=== PATIENT | male | born 1955 | race Caucasian/White ===

== ENCOUNTER 2017-08-08 17:38 | Day surgery (SDC) | payer OTHER ==
--- NOTE | 2017-08-08 18:28 | EDM.PDOC ---
ED HPI GENERAL MEDICAL PROBLEM - General Chief Complaint: Upper Extremity Injury/Pain Stated Complaint: RIGHT SHOULD HURT FEEL DOWN Time Seen by Provider: 08/08/17 18:15 Source of Information: Reports: Patient History Limitations: Reports: No Limitations - History of Present Illness INITIAL COMMENTS - FREE TEXT/NARRATIVE: HISTORY AND PHYSICAL: History of present illness: [Patient comes to the emergency room complaining of right shoulder pain. He was walking on uneven ground when he began to lose his balance. He fell against the house with his right hand and arm outstretched, bracing him against the house. He complains of deformity and discomfort to his right arm. Denies significant pain. Is unable to use his arm. NPO since 1629. Drank 6 beers this afternoon with some family that were in town for a . Denies any pain at the time that he is seen in the emergency room. Review of systems: As per history of present illness and below otherwise all systems reviewed and negative. Past medical history: As per history of present illness and as reviewed below otherwise noncontributory. Surgical history: As per history of present illness and as reviewed below otherwise noncontributory. Social history: No reported history of drug or alcohol abuse. Family history: As per history of present illness and as reviewed below otherwise noncontributory. Physical exam: HEENT: Atraumatic, normocephalic. Extremities: Ecchymosis is developing at the AC joint. Right shoulder appears lower than left. Patient is cradling his right arm with his left. Capillary refill less than 2 seconds. Radial pulse 2+ and strong. Neurovascular unremarkable. Neuro: Awake, alert, oriented. Exam nonfocal. Diagnostics: [Right shoulder x-ray, R humerus x-ray] Impression: [R anterior shoulder dislocation, R proximal humerus fracture] Plan: [Patient's x-ray findings and presentation are discussed w/ Dr. Ameena Meza at 1920 who agrees to evaluate patient in the ER. See Dr. Meza's note. Patient is taken to surgery to have right shoulder dislocation repaired nonsurgically. ] Definitive disposition and diagnosis as appropriate pending reevaluation and review of above. - Related Data Allergies Allergy/AdvReac Type Severity Reaction Status Date / Time No Known Allergies Allergy Verified 08/08/17 18:14 Home Meds: Home Meds Acetaminophen/HYDROcodone [[place] 325-10 MG] 1 tab PO Q4H PRN #80 tablet [Rx] Past Medical History - Past Health History Medical/Surgical History: Denies Medical/Surgical History Social & Family History - Tobacco Use Smoking Status *Q: Never Smoker Second Hand Smoke Exposure: No - Caffeine Use Caffeine Use: Reports: None - Alcohol Use Days Per Week of Alcohol Use: 5 Number of Drinks Per Day: 6 Total Drinks Per Week: 30 - Recreational Drug Use Recreational Drug Use: No Review of Systems - Review of Systems Review Of Systems: ROS reveals no pertinent complaints other than HPI. ED EXAM, GENERAL - Physical Exam Exam: See Below Course - Vital Signs Last Recorded V/S: Last Vital Signs Temp 97.5 F 08/08/17 18:13 Pulse 88 08/08/17 18:13 Resp 20 08/08/17 20:45 BP 168/89 H 08/08/17 18:13 Pulse Ox 96 08/08/17 20:45 - Orders/Labs/Meds Orders: Active Orders 24 hr Category Date Time Status EKG Documentation Completion [RC] STAT Care 08/08/17 19:22 Active NPO [Nothing Per Oral Diet] [DIET] Diet 08/09/17 Breakfast Active Humerus Rt [CR] Stat Exams 08/08/17 18:38 Taken Shoulder Comp Rt [CR] Stat Exams 08/08/17 18:19 Taken Shoulder Comp Rt [CR] Stat Exams 08/08/17 19:46 Taken UA W/MICROSCOPIC [URIN] Stat Lab 08/08/17 19:22 Uncollected Labs: Laboratory Tests 08/08/17 08/08/17 08/08/17 Range/Units 19:35 19:35 19:35 WBC 3.95 L (4.0-11.0) K/uL RBC 4.03 L (4.50-5.90) M/uL Hgb 13.0 (13.0-17.0) g/dL Hct 38.0 (38.0-50.0) % MCV 94.3 (80.0-98.0) fL MCH 32.3 H (27.0-32.0) pg MCHC 34.2 (31.0-37.0) g/dL RDW Std Deviation 50.6 (28.0-62.0) fl RDW Coeff of Toni 15 (11.0-15.0) % Plt Count 146 L (150-400) K/uL MPV 9.30 (7.40-12.00) fL Add Manual Diff YES Neutrophils % (Manual) 60 (48.0-80.0) % Band Neutrophils % 6 % Lymphocytes % (Manual) 25 (16.0-40.0) % Monocytes % (Manual) 8 (0.0-15.0) % Basophils % (Manual) 1 (0.0-1.5) % Nucleated RBC % 0.0 /100WBC Absolute Seg Neuts 2.4 Band Neutrophils # 0.2 Lymphocytes # (Manual) 1.0 Monocytes # (Manual) 0.3 Basophils # (Manual) 0 Nucleated RBCs # 0 K/uL INR 1.03 (0.86-1.11) Sodium 137 (136-146) mmol/L Potassium 3.6 (3.5-5.1) mmol/L Chloride 101 (98-110) mmol/L Carbon Dioxide 21 (21-31) mmol/L BUN 9 (6.0-23.0) mg/dL Creatinine 0.8 (0.6-1.5) mg/dL Est Cr Clr Drug Dosing 157.50 mL/min Estimated GFR (MDRD) > 60.0 ml/min Glucose 107 (60-110) mg/dL Calcium 8.6 L (8.8-10.8) mg/dL Meds: Medications Discontinued Medications Generic Name Dose Route Start Last Admin Trade Name Freq PRN Reason Stop Dose Admin Fentanyl Confirm 08/08/17 19:39 Sublimaze Administered 08/08/17 19:40 Dose 100 mcg .ROUTE .STK-MED ONE Fentanyl Confirm 08/08/17 20:14 Sublimaze Administered 08/08/17 20:15 Dose 100 mcg .ROUTE .STK-MED ONE Sodium Chloride 1,000 mls @ 999 mls/hr 08/08/17 19:30 08/08/17 19:44 Normal Saline IV 08/08/17 20:30 999 mls/hr STAT ONE Administration Ketorolac Tromethamine Confirm 08/08/17 20:24 Toradol Administered 08/08/17 20:25 Dose 30 mg .ROUTE .STK-MED ONE Labetalol HCl Confirm 08/08/17 20:34 Normodyne Administered 08/08/17 20:35 Dose 100 mg .ROUTE .STK-MED ONE Midazolam HCl Confirm 08/08/17 19:39 Versed 1 Mg/Ml Administered 08/08/17 19:40 Dose 2 mg .ROUTE .STK-MED ONE Ondansetron HCl Confirm 08/08/17 19:39 Zofran Administered 08/08/17 19:40 Dose 4 mg .ROUTE .STK-MED ONE Propofol Confirm 08/08/17 19:39 Diprivan 20 Ml Administered 08/08/17 19:40 Dose 200 mg .ROUTE .STK-MED ONE Rocuronium [place] Confirm 08/08/17 19:39 Zemuron Administered 08/08/17 19:40 Dose 100 mg .ROUTE .STK-MED ONE Succinylcholine Chloride Confirm 08/08/17 19:39 Succinylcholine In Ns Pf Administered 08/08/17 19:40 Dose 200 mg .ROUTE .STK-MED ONE Departure - Departure Time of Disposition: 20:05 Disposition: Still A Patient 30 Condition: Good Clinical Impression: Anterior shoulder dislocation, Humerus fracture - Discharge Information - My Orders Last 24 Hours: My Active Orders 08/08/17 18:19 Shoulder Comp Rt [CR] Stat 08/08/17 18:38 Humerus Rt [CR] Stat 08/08/17 19:22 EKG Documentation Completion [RC] STAT UA W/MICROSCOPIC [URIN] Stat 08/09/17 Breakfast NPO [Nothing Per Oral Diet] [DIET] - Assessment/Plan Last 24 Hours: My Active Orders 08/08/17 18:19 Shoulder Comp Rt [CR] Stat 08/08/17 18:38 Humerus Rt [CR] Stat 08/08/17 19:22 EKG Documentation Completion [RC] STAT UA W/MICROSCOPIC [URIN] Stat 08/09/17 Breakfast NPO [Nothing Per Oral Diet] [DIET]
[2017-08-08] MEDS ORDERED: Sodium Chloride 0.9% 1,000 ML IV ONE (19:30)
[2017-08-08] MEDS ORDERED: Ondansetron 4 MG/2 ML SDV ONE (19:39)
[2017-08-08] MEDS ORDERED: fentaNYL 100 MCG/2 ML SDV ONE ×2 (19:39→20:14)
[2017-08-08] MEDS ORDERED: Propofol 200 MG/20 ML SDV ONE (19:39)
[2017-08-08] MEDS ORDERED: Rocuronium 10 MG/ML 10 ML Syringe ONE (19:39)
[2017-08-08] MEDS ORDERED: Succinylcholine/Normal Saline 200 MG/10 ML Syringe ONE (19:39)
[2017-08-08] MEDS ORDERED: Midazolam 1 MG/ML 2 ML SDV ONE (19:39)
[2017-08-08 19:56] LABS: CHLORIDE,CL 101 mmol/L (98-110); SODIUM,NA 137 mmol/L (136-146)
--- NOTE | 2017-08-08 20:04 | PCM.HP ---
H&P History of Present Illness - General Date of Service: 08/08/17 Source of Information: Patient, Family History Limitations: Reports: No Limitations - History of Present Illness Initial Comments - Free Text/Narative: 62 y/o RHD male who fell earlier today, landing on RUE. C/o pain and inability to move shoulder. Presented to ER. XR show fracture/dislocation of the R humerus /shoulder. Patient states pain is fairly well controlled. No h/o previous injury or pain. Denies distal paralysis/paresthesias. Onset of Symptoms: Reports: Today - Related Data Allergies/Adverse Reactions: Allergies Allergy/AdvReac Type Severity Reaction Status Date / Time No Known Allergies Allergy Verified 08/08/17 18:14 Home Medications: Home Meds . [No Known Home Meds] 08/08/17 [History] Past Medical History - Past Surgical History HEENT Surgical History: Reports: Cataract Surgery GI Surgical History: Reports: Other (See Below) (perirectal abscess) Social & Family History - Tobacco Use Smoking Status *Q: Never Smoker Second Hand Smoke Exposure: No - Caffeine Use Caffeine Use: Reports: None - Alcohol Use Alcohol Use History: Yes Days Per Week of Alcohol Use: 5 Number of Drinks Per Day: 6 Total Drinks Per Week: 30 - Recreational Drug Use Recreational Drug Use: No H&P Review of Systems - Review of Systems: Review Of Systems: See Below General: Reports: No Symptoms HEENT: Reports: No Symptoms Pulmonary: Reports: No Symptoms Cardiovascular: Reports: No Symptoms Gastrointestinal: Reports: No Symptoms Genitourinary: Reports: No Symptoms Musculoskeletal: Reports: Joint Pain Skin: Reports: No Symptoms Psychiatric: Reports: No Symptoms Neurological: Reports: No Symptoms Hematologic/Lymphatic: Reports: No Symptoms Immunologic: Reports: No Symptoms Exam - Exam Exam: See Below - Vital Signs Vital Signs: Last Vital Signs Temp 97.5 F 08/08/17 18:13 Pulse 88 08/08/17 18:13 Resp 20 08/08/17 18:13 BP 168/89 H 08/08/17 18:13 Pulse Ox 96 08/08/17 18:13 Weight: 113.398 kg - Exam General: Alert, Oriented, 4 HEENT: Conjunctiva Clear, Hearing Intact, Nares Patent, Pupils Equal Neck: Supple, Trachea Midline, 2 Lungs: Normal Respiratory Effort Cardiovascular: Regular Rate GI/Abdominal Exam: Soft Psychiatric: Alert, Normal Affect, Normal Mood Physical Exam Comments:: Exam of RUE shows loss of deltoid contour. Skin intact. TTP over midshaft of humerus. No skin tenting noted. No TTP about elbow or wrist. ROM of shoulder deferred due to XR findings. Axillary/AIN/PIN/uln motor intact. Axillary/rad/uln /med sensation intact. Rad pulse 2+. - Patient Data Result Diagrams: 08/08/17 19:35 Imaging Impressions Last 24 hrs: XR of R shoulder and upper arms shows anterior dislocation of the R glenohumeral joint and spiral fracture of the humerus. *Q Meaningful Use (ADM) - VTE *Q VTE Criteria *Q: - Stroke *Q Stroke Criteria *Q: - AMI *Q AMI Criteria *Q: - Problem List (1) Humerus shaft fracture SNOMED Code(s): 38611231 ICD Code: S42.309A - UNSP FRACTURE OF SHAFT OF HUMERUS, UNSP ARM, INIT Status: Acute Current Visit: Yes Qualifiers: Encounter type: initial encounter Fracture type: closed Fracture morphology: spiral Fracture alignment: displaced Laterality: right Qualified Code(s): S42.341A - Displaced spiral fracture of shaft of humerus, right arm, initial encounter for closed fracture (2) Dislocation, shoulder closed SNOMED Code(s): 148740355 ICD Code: S43.006A - UNSP DISLOCATION OF UNSPECIFIED SHOULDER JOINT, INIT ENCNTR Status: Acute Current Visit: Yes Qualifiers: Encounter type: initial encounter Laterality: right Qualified Code(s): S43.004A - Unspecified dislocation of right shoulder joint, initial encounter Problem List Initiated/Reviewed/Updated: Yes Orders Last 24hrs: Medication Orders Sodium Chloride (Normal Saline) 1,000 mls @ 999 mls/hr IV STAT ONE Stop: 08/08/17 20:30 Last Admin: 08/08/17 19:44 Dose: 999 mls/hr Assessment/Plan Comment:: I recommended that we proceed with Closed Reduction of the right shoulder. I discussed that he may need further surgical treatment of the fracture in the future, however we would not do that tonight. Risks of procedure include, but are not limited to, n/v injury, stiffness, recurrent dislocation, need for future surgery, and anesthetic complications. Patient agrees to proceed.
[2017-08-08] MEDS ORDERED: Ketorolac 30 MG/ML SDV ONE (20:24)
--- NOTE | 2017-08-08 20:31 | PCM.OPNOTE ---
- General Post-Op/Procedure Note Date of Surgery/Procedure: 08/08/17 Operative Procedure(s): CR R shoulder Post-Op Diagnosis: R shoulder dislocation. R humerus fracture Anesthesia Technique: General ET Tube Primary Surgeon: Ameena Meza Manager Advertising: Rosie Johnson in mLs: 0 Condition: Good Free Text/Narrative:: #[id number]
[2017-08-08] MEDS ORDERED: Labetalol 100 MG/20 ML MDV ONE (20:34)
--- NOTE | 2017-08-08 20:46 | PCM.PREANE ---
Preanesthetic Assessment - Anesthesia/Transfusion/Family Hx Anesthesia History: Prior Anesthesia Without Reaction Family History of Anesthesia Reaction: No - Review of Systems Other: Reports: None - Physical Assessment O2 Sat by Pulse Oximetry: 96 Respiratory Rate: 20 Vital Signs: Last Vital Signs Temp 36.4 C 08/08/17 18:13 Pulse 88 08/08/17 18:13 Resp 20 08/08/17 18:13 BP 168/89 H 08/08/17 18:13 Pulse Ox 96 08/08/17 18:13 Height: 511 ft Weight: 113.398 kg ASA Class: 2E Mental Status: Alert & Oriented x3 Airway Class: Mallampati = 2 Dentition: Reports: Normal Dentition, Broken Tooth/Teeth (front tooth missing) Thyro-Mental Finger Breadths: 3 Mouth Opening Finger Breadths: 3 ROM/Head Extension: Full - Lab Values: Laboratory Last Values WBC 3.95 K/uL (4.0-11.0) L 08/08/17 19:35 RBC 4.03 M/uL (4.50-5.90) L 08/08/17 19:35 Hgb 13.0 g/dL (13.0-17.0) 08/08/17 19:35 Hct 38.0 % (38.0-50.0) 08/08/17 19:35 MCV 94.3 fL (80.0-98.0) 08/08/17 19:35 MCH 32.3 pg (27.0-32.0) H 08/08/17 19:35 MCHC 34.2 g/dL (31.0-37.0) 08/08/17 19:35 RDW Std Deviation 50.6 fl (28.0-62.0) 08/08/17 19:35 RDW Coeff of Toni 15 % (11.0-15.0) 08/08/17 19:35 Plt Count 146 K/uL (150-400) L 08/08/17 19:35 MPV 9.30 fL (7.40-12.00) 08/08/17 19:35 Add Manual Diff YES 08/08/17 19:35 Neutrophils % (Manual) 60 % (48.0-80.0) 08/08/17 19:35 Band Neutrophils % 6 % 08/08/17 19:35 Lymphocytes % (Manual) 25 % (16.0-40.0) 08/08/17 19:35 Monocytes % (Manual) 8 % (0.0-15.0) 08/08/17 19:35 Basophils % (Manual) 1 % (0.0-1.5) 08/08/17 19:35 Nucleated RBC % 0.0 /100WBC 08/08/17 19:35 Absolute Seg Neuts 2.4 08/08/17 19:35 Band Neutrophils # 0.2 08/08/17 19:35 Lymphocytes # (Manual) 1.0 08/08/17 19:35 Monocytes # (Manual) 0.3 08/08/17 19:35 Basophils # (Manual) 0 08/08/17 19:35 Nucleated RBCs # 0 K/uL 08/08/17 19:35 INR 1.03 (0.86-1.11) 08/08/17 19:35 Sodium 137 mmol/L (136-146) 08/08/17 19:35 Potassium 3.6 mmol/L (3.5-5.1) 08/08/17 19:35 Chloride 101 mmol/L (98-110) 08/08/17 19:35 Carbon Dioxide 21 mmol/L (21-31) 08/08/17 19:35 BUN 9 mg/dL (6.0-23.0) 08/08/17 19:35 Creatinine 0.8 mg/dL (0.6-1.5) 08/08/17 19:35 Est Cr Clr Drug Dosing 157.50 mL/min 08/08/17 19:35 Estimated GFR (MDRD) > 60.0 ml/min 08/08/17 19:35 Glucose 107 mg/dL (60-110) 08/08/17 19:35 Calcium 8.6 mg/dL (8.8-10.8) L 08/08/17 19:35 - Allergies Allergies/Adverse Reactions: Allergies Allergy/AdvReac Type Severity Reaction Status Date / Time No Known Allergies Allergy Verified 08/08/17 18:14 - Blood Blood Available: No - Anesthesia Plan Pre-Op Medication Ordered: None - Acknowledgements Anesthesia Type Planned: General Anesthesia Pt an Appropriate Candidate for the Planned Anesthesia: Yes Alternatives and Risks of Anesthesia Discussed w Pt/Guardian: Yes Pt/Guardian Understands and Agrees with Anesthesia Plan: Yes PreAnesthesia Questionnaire - Past Health History Medical/Surgical History: Denies Medical/Surgical History Gastrointestinal History: Reports: GERD - Past Surgical History HEENT Surgical History: Reports: Cataract Surgery GI Surgical History: Reports: Other (See Below) (perirectal abscess) - SUBSTANCE USE Smoking Status *Q: Never Smoker Second Hand Smoke Exposure: No Days Per Week of Alcohol Use: 5 Number of Drinks Per Day: 6 Total Drinks Per Week: 30 Recreational Drug Use History: No - HOME MEDS Home Medications: Home Meds Acetaminophen/HYDROcodone [[place] 325-10 MG] 1 tab PO Q4H PRN #80 tablet [Rx] - CURRENT (IN HOUSE) MEDS Current Meds: Current Medications Discontinued Medications Fentanyl (Sublimaze) Confirm Administered Dose 100 mcg .ROUTE .STK-MED ONE Stop: 08/08/17 19:40 Fentanyl (Sublimaze) Confirm Administered Dose 100 mcg .ROUTE .STK-MED ONE Stop: 08/08/17 20:15 Sodium Chloride (Normal Saline) 1,000 mls @ 999 mls/hr IV STAT ONE Stop: 08/08/17 20:30 Last Admin: 08/08/17 19:44 Dose: 999 mls/hr Ketorolac Tromethamine (Toradol) Confirm Administered Dose 30 mg .ROUTE .STK- MED ONE Stop: 08/08/17 20:25 Labetalol HCl (Normodyne) Confirm Administered Dose 100 mg .ROUTE .STK-MED ONE Stop: 08/08/17 20:35 Midazolam HCl (Versed 1 Mg/Ml) Confirm Administered Dose 2 mg .ROUTE .STK-MED ONE Stop: 08/08/17 19:40 Ondansetron HCl (Zofran) Confirm Administered Dose 4 mg .ROUTE .STK-MED ONE Stop: 08/08/17 19:40 Propofol (Diprivan 20 Ml) Confirm Administered Dose 200 mg .ROUTE .STK-MED ONE Stop: 08/08/17 19:40 Rocuronium [place] (Zemuron) Confirm Administered Dose 100 mg .ROUTE .STK-MED ONE Stop: 08/08/17 19:40 Succinylcholine Chloride (Succinylcholine In Ns Pf) Confirm Administered Dose 200 mg .ROUTE .STK-MED ONE Stop: 08/08/17 19:40
--- NOTE | 2017-08-08 20:46 | PCM.POSTAN ---
POST ANESTHESIA ASSESSMENT - MENTAL STATUS Mental Status: Alert, Oriented - RESPIRATORY Respiratory Status: Respiratory Rate WNL, Airway Patent, O2 Saturation Stable - CARDIOVASCULAR CV Status: Pulse Rate WNL, Blood Pressure Stable - GASTROINTESTINAL GI Status: No Symptoms - PAIN Pain Score: 0 - POST OP HYDRATION Hydration Status: Adequate & Stable
--- NOTE | 2017-08-08 21:44 | PCM48HPAN ---
Post Anesthesia Note - EVALUATION WITHIN 48HRS OF ANESTHETIC Vital Signs in Normal Range: Yes Patient Participated in Evaluation: Yes Respiratory Function Stable: Yes Airway Patent: Yes Cardiovascular Function Stable: Yes Hydration Status Stable: Yes Pain Control Satisfactory: Yes Nausea and Vomiting Control Satisfactory: Yes Mental Status Recovered: Yes
[2017-08-08] MEDS ORDERED: Acetaminophen/HYDROcodone 325-10 MG Tab PO PRN ×2 (23:01→23:31)
[2017-08-08] MEDS ORDERED: Morphine 2 MG/ML Syringe IVPUSH PRN (23:01)
[2017-08-09] MEDS ORDERED: Lisinopril 10 MG Tab PO ONE (00:43)
--- NOTE | 2017-08-09 01:19 | OR ---
SURGEON: Ameena Meza MD DATE OF PROCEDURE: 08/08/2017 PREOPERATIVE DIAGNOSES: 1. Right anterior shoulder dislocation. 2. Right proximal humerus fracture. POSTOPERATIVE DIAGNOSES: 1. Right anterior shoulder dislocation. 2. Right proximal humerus fracture. PROCEDURE: Closed reduction, right shoulder. CIVIL ENGINEERING DRAFTSPERSON: Rosie Johnson PA-C. ANESTHESIA: General. ESTIMATED BLOOD LOSS: 0 mL. TOURNIQUET TIME: 0 minutes. COMPLICATIONS: None. DVT PROPHYLAXIS: Not indicated. IMPLANTS USED: None. BRIEF HISTORY: Сергей is a 62-year-old male, who sustained a fall earlier today. He states that he landed on an outstretched right arm. He complained of immediate pain. He was seen in the emergency room. X-rays were obtained, which showed a fracture of the right proximal humerus as well as an anterior shoulder dislocation. At that time, I recommended surgical treatment. Risks and goals of procedure were discussed with the patient and were documented preoperatively. He agreed to proceed. DESCRIPTION OF PROCEDURE: The patient was properly identified and brought to the operating room. General anesthesia was administered. After adequate anesthesia was obtained, a time-out was performed to ensure correct site and procedure. Preoperative antibiotics were not given. The surgical site had been marked preoperatively. The torso was stabilized. Gentle traction was applied to the upper arm and it was slightly flexed. This provided a visible reduction of the glenohumeral joint. X-ray images had confirmed reduction of the glenohumeral joint. The proximal humerus fracture remained mildly displaced. He was placed into a shoulder immobilizer. He was awakened from his anesthetic and transferred to the recovery room in stable condition. He will remain in a shoulder immobilizer. We will plan on seeing him back in 2 days for re-evaluation. At that time, we will discuss the option of a humeral fracture brace versus open reduction and internal fixation. He will be discharged home tonight with pain medication. ANABEL / LAURA /[id number]
--- NOTE | 2017-08-09 09:52 | PCM.PN ---
- General Info Date of Service: 08/09/17 Functional Status: Reports: Pain Controlled, Tolerating Diet, Ambulating, Urinating - Review of Systems General: Reports: No Symptoms Pulmonary: Reports: No Symptoms Cardiovascular: Reports: No Symptoms Gastrointestinal: Reports: No Symptoms Genitourinary: Reports: No Symptoms Musculoskeletal: Reports: Shoulder Pain Neurological: Reports: No Symptoms Psychiatric: Reports: No Symptoms - Patient Data Vitals - Most Recent: Last Vital Signs Temp 37.4 C 08/09/17 08:00 Pulse 97 08/09/17 08:00 Resp 16 08/09/17 08:00 BP 169/77 H 08/09/17 08:00 Pulse Ox 98 08/09/17 08:00 Weight - Most Recent: 113.398 kg I&O - Last 24 Hours: Intake & Output 08/08/17 08/09/17 08/09/17 22:59 06:59 14:59 Intake Total 900 700 Balance 900 700 Lab Results Last 24 Hours: Laboratory Results - last 24 hr 08/08/17 08/08/17 08/08/17 Range/Units 19:35 19:35 19:35 WBC 3.95 L (4.0-11.0) K/uL RBC 4.03 L (4.50-5.90) M/uL Hgb 13.0 (13.0-17.0) g/dL Hct 38.0 (38.0-50.0) % MCV 94.3 (80.0-98.0) fL MCH 32.3 H (27.0-32.0) pg MCHC 34.2 (31.0-37.0) g/dL RDW Std Deviation 50.6 (28.0-62.0) fl RDW Coeff of Toni 15 (11.0-15.0) % Plt Count 146 L (150-400) K/uL MPV 9.30 (7.40-12.00) fL Add Manual Diff YES Neutrophils % (Manual) 60 (48.0-80.0) % Band Neutrophils % 6 % Lymphocytes % (Manual) 25 (16.0-40.0) % Monocytes % (Manual) 8 (0.0-15.0) % Basophils % (Manual) 1 (0.0-1.5) % Nucleated RBC % 0.0 /100WBC Absolute Seg Neuts 2.4 Band Neutrophils # 0.2 Lymphocytes # (Manual) 1.0 Monocytes # (Manual) 0.3 Basophils # (Manual) 0 Nucleated RBCs # 0 K/uL INR 1.03 (0.86-1.11) Sodium 137 (136-146) mmol/L Potassium 3.6 (3.5-5.1) mmol/L Chloride 101 (98-110) mmol/L Carbon Dioxide 21 (21-31) mmol/L BUN 9 (6.0-23.0) mg/dL Creatinine 0.8 (0.6-1.5) mg/dL Est Cr Clr Drug Dosing 157.50 mL/min Estimated GFR (MDRD) > 60.0 ml/min Glucose 107 (60-110) mg/dL Calcium 8.6 L (8.8-10.8) mg/dL Med Orders - Current: Current Medications Hydrocodone Bitart/Acetaminophen ([place] 325-10 Mg) 1 - 2 tab PO Q4H PRN PRN Reason: Pain Last Admin: 08/09/17 07:31 Dose: 2 tab Morphine Sulfate (Morphine) 1 - 3 mg IVPUSH Q1H PRN PRN Reason: Pain Discontinued Medications Hydrocodone Bitart/Acetaminophen ([place] 325-10 Mg) 1 tab PO Q4H PRN PRN Reason: Pain Fentanyl (Sublimaze) Confirm Administered Dose 100 mcg .ROUTE .STK-MED ONE Stop: 08/08/17 19:40 Fentanyl (Sublimaze) Confirm Administered Dose 100 mcg .ROUTE .STK-MED ONE Stop: 08/08/17 20:15 Sodium Chloride (Normal Saline) 1,000 mls @ 999 mls/hr IV STAT ONE Stop: 08/08/17 20:30 Last Admin: 08/08/17 19:44 Dose: 999 mls/hr Ketorolac Tromethamine (Toradol) Confirm Administered Dose 30 mg .ROUTE .STK- MED ONE Stop: 08/08/17 20:25 Labetalol HCl (Normodyne) Confirm Administered Dose 100 mg .ROUTE .STK-MED ONE Stop: 08/08/17 20:35 Lisinopril (Prinivil) 20 mg PO ONETIME ONE Stop: 08/09/17 00:44 Last Admin: 08/09/17 01:09 Dose: 20 mg Midazolam HCl (Versed 1 Mg/Ml) Confirm Administered Dose 2 mg .ROUTE .STK-MED ONE Stop: 08/08/17 19:40 Ondansetron HCl (Zofran) Confirm Administered Dose 4 mg .ROUTE .STK-MED ONE Stop: 08/08/17 19:40 Propofol (Diprivan 20 Ml) Confirm Administered Dose 200 mg .ROUTE .STK-MED ONE Stop: 08/08/17 19:40 Rocuronium [place] (Zemuron) Confirm Administered Dose 100 mg .ROUTE .STK-MED ONE Stop: 08/08/17 19:40 Succinylcholine Chloride (Succinylcholine In Ns Pf) Confirm Administered Dose 200 mg .ROUTE .STK-MED ONE Stop: 08/08/17 19:40 - Exam General: Alert, Oriented HEENT: Pupils Equal, Pupils Reactive Neck: Trachea Midline Lungs: Normal Respiratory Effort Cardiovascular: Regular Rate Extremities: Other (R shoulder immobilizer in place. ) Skin: Warm, Dry, Intact Neurological: No New Focal Deficit Psy/Mental Status: Alert, Normal Affect, Normal Mood - Problem List Review Problem List Initiated/Reviewed/Updated: Yes - My Orders Last 24 Hours: My Active Orders 08/08/17 20:30 Ready for Discharge [RC] PER UNIT ROUTINE - Assessment Assessment:: Patient up to chair this AM. Pain well controlled. Denies other symptoms. - Plan Plan:: Continue pain management. Consulted Dr. Toribio regarding elevated BP. Will D/C home with referral to PCP. Followup in ortho clinic 08/10 at 9 AM with Rosie Johnson PA-C.
--- NOTE | 2017-08-09 10:06 | CR ---
EXAM DATE: 08/08/17 PATIENT'S AGE: 62 Patient: CHALINO REID Facility: [place], [place] Site . Site : 1955 Study: XRay Shoulder [id number]/26/2017 6:47:12 PM Ordering Physician: Doctor Patino Final Report: INDICATION: Trauma TECHNIQUE: Three views right shoulder COMPARISON: None FINDINGS: Bones: Displaced fracture proximal humeral shaft. Joint spaces: The humeral head is displaced inferior medially consistent with anterior dislocation. Soft tissues: Unremarkable. IMPRESSION: Displaced fracture proximal humeral shaft. The humeral head is displaced inferior medially consistent with anterior dislocation. Dictated by Nikita Infante MD @ 08/08/2017 7:28:51 PM Dictated by: Nikita Infante MD @ 08/08/2017 19:28:55 (Electronic Signature) Report Signed by Proxy. [facility] CENTERBharti
--- NOTE | 2017-08-09 10:07 | CR ---
EXAM DATE: 08/08/17 PATIENT'S AGE: 62 Patient: CHALINO REID Facility: [place], [place] Site . Site : 1955 Study: XRay Extremity humerus [id number]/26/2017 6:47:29 PM Ordering Physician: Doctor Patino Final Report: INDICATION: All TECHNIQUE: Two views right humerus COMPARISON: None FINDINGS: Bones: Displaced fracture proximal to mid humeral shaft. Joint spaces: The right shoulder joint is not well seen but three views of the right shoulder demonstrate an anterior dislocation. Soft tissues: Unremarkable. IMPRESSION: Displaced fracture proximal to mid humeral shaft. The right shoulder joint is not well seen but three views of right shoulder demonstrate anterior dislocation. Dictated by Nikita Infante MD @ 08/08/2017 7:32:48 PM Dictated by: Nikita Infante MD @ 08/08/2017 19:32:52 (Electronic Signature) Report Signed by Proxy. SHIREEN
--- NOTE | 2017-08-09 10:16 | CR ---
EXAM DATE: 08/08/17 PATIENT'S AGE: 62 Patient: CHALINO REID Facility: [place], [place] Site . Site : 1955 Study: XRay Shoulder [id number]/26/2017 8:25:41 PM Ordering Physician: Derrick Lindquist Final Report: INDICATION: Post reduction TECHNIQUE: Two views right shoulder, 8:14 p.m. COMPARISON: 6:26 p.m. FINDINGS: Bones: Displaced fracture proximal to mid humeral shaft. Joint spaces: Unremarkable. Soft tissues: Unremarkable. IMPRESSION: Anatomical alignment of the glenohumeral joint. Displaced fracture proximal to mid humeral shaft. Dictated by Nikita Infante MD @ 08/08/2017 9:27:01 PM Dictated by: Nikita Infante MD @ 08/08/2017 21:28:37 (Electronic Signature) Report Signed by Proxy. SHIRENE
--- NOTE | 2017-08-09 10:59 | PCM.CONS ---
H&P History of Present Illness - General Date of Service: 08/09/17 Admit Problem/Dx: Admission Diagnosis/Problem Admission Diagnosis/Problem Fracture of humerus Source of Information: Patient History Limitations: Reports: No Limitations - History of Present Illness Initial Comments - Free Text/Narative: 62 year male admitted 08/08 for fracture of right humerus under care of Dr. Meza. Closed reduction was performed earlier today. Medicine has been consulted for elevated BP. Patient denies any pmh of HTN but does admit he had not seen a physician for many years prior to this hospitalization. He denies any pmh and does not take any medications other than daily Aspirin and multivitamins. His family history is significant for HTN in his mom only. He does not use tobacco. He drinks 6-8 beers/day on most weekdays. He denies and headache, vision change, chest pain, sob, swelling, numbness, tingling, weakness or urinary changes. Right Shoulder Pain Score (Numeric/FACES): 0 - Related Data Allergies/Adverse Reactions: Allergies Allergy/AdvReac Type Severity Reaction Status Date / Time No Known Allergies Allergy Verified 08/08/17 18:14 Home Medications: Home Meds Acetaminophen/HYDROcodone [[place] 325-10 MG] 1 tab PO Q4H PRN #80 tablet [Rx] Past Medical History - Past Health History Medical/Surgical History: Denies Medical/Surgical History Gastrointestinal History: Reports: GERD - Past Surgical History HEENT Surgical History: Reports: Cataract Surgery GI Surgical History: Reports: Other (See Below) (perirectal abscess) Social & Family History - Tobacco Use Smoking Status *Q: Never Smoker Second Hand Smoke Exposure: No - Caffeine Use Caffeine Use: Reports: None - Alcohol Use Days Per Week of Alcohol Use: 5 Number of Drinks Per Day: 6 Total Drinks Per Week: 30 - Recreational Drug Use Recreational Drug Use: No H&P Review of Systems - Review of Systems: Review Of Systems: See Below General: Reports: No Symptoms HEENT: Reports: No Symptoms Pulmonary: Reports: No Symptoms Cardiovascular: Reports: No Symptoms Gastrointestinal: Reports: No Symptoms Genitourinary: Reports: No Symptoms Musculoskeletal: Reports: Shoulder Pain Skin: Reports: No Symptoms Psychiatric: Reports: No Symptoms Neurological: Reports: No Symptoms Hematologic/Lymphatic: Reports: No Symptoms Immunologic: Reports: No Symptoms Exam - Exam Exam: See Below - Vital Signs Vital Signs: Last Vital Signs Temp 37.4 C 08/09/17 08:00 Pulse 97 08/09/17 08:00 Resp 16 08/09/17 08:00 BP 169/77 H 08/09/17 08:00 Pulse Ox 98 08/09/17 08:00 Weight: 113.398 kg - Exam General: Alert, Oriented HEENT: Conjunctiva Clear, EACs Clear, EOMI, Hearing Intact, Mucosa Moist & [place]ck: Supple, Trachea Midline, +2 Carotid Pulse wo Bruit Lungs: Clear to Auscultation, Normal Respiratory Effort Cardiovascular: Regular Rate, Regular Rhythm GI/Abdominal Exam: Soft, Non-Tender, No Distention - Patient Data Lab Results Last 24 hrs: Laboratory Results - last 24 hr 08/08/17 08/08/17 08/08/17 Range/Units 19:35 19:35 19:35 WBC 3.95 L (4.0-11.0) K/uL RBC 4.03 L (4.50-5.90) M/uL Hgb 13.0 (13.0-17.0) g/dL Hct 38.0 (38.0-50.0) % MCV 94.3 (80.0-98.0) fL MCH 32.3 H (27.0-32.0) pg MCHC 34.2 (31.0-37.0) g/dL RDW Std Deviation 50.6 (28.0-62.0) fl RDW Coeff of Toni 15 (11.0-15.0) % Plt Count 146 L (150-400) K/uL MPV 9.30 (7.40-12.00) fL Add Manual Diff YES Neutrophils % (Manual) 60 (48.0-80.0) % Band Neutrophils % 6 % Lymphocytes % (Manual) 25 (16.0-40.0) % Monocytes % (Manual) 8 (0.0-15.0) % Basophils % (Manual) 1 (0.0-1.5) % Nucleated RBC % 0.0 /100WBC Absolute Seg Neuts 2.4 Band Neutrophils # 0.2 Lymphocytes # (Manual) 1.0 Monocytes # (Manual) 0.3 Basophils # (Manual) 0 Nucleated RBCs # 0 K/uL INR 1.03 (0.86-1.11) Sodium 137 (136-146) mmol/L Potassium 3.6 (3.5-5.1) mmol/L Chloride 101 (98-110) mmol/L Carbon Dioxide 21 (21-31) mmol/L BUN 9 (6.0-23.0) mg/dL Creatinine 0.8 (0.6-1.5) mg/dL Est Cr Clr Drug Dosing 157.50 mL/min Estimated GFR (MDRD) > 60.0 ml/min Glucose 107 (60-110) mg/dL Calcium 8.6 L (8.8-10.8) mg/dL Result Diagrams: 08/08/17 19:35 08/08/17 19:35 Consult PN Assessment/Plan Problem List Initiated/Reviewed/Updated: Yes Plan: Assessment: 62 yo male with no pmh admitted 08/08 for fracture of right humerus under care of Dr. Meza. Had closed reduction performed this morning. HTN was present at initial reading in ED and has persisted throughout hospitalization. BP has ranged from 144-215/72-105 with average about 180s/90s. He was given Liniopril 20 mg PO single dose which resulted in improved bp. Most recent BP reading was 169/77. Plan: Patient likely has Essential HTN that was present prior to recent hospitalization. He had some improvement after receiving Lisinopril. He will be discharged home on Lisinopril 20 mg QD. He does not have a current PCP therefore f/u was arranged for him. Discussed natural course of condition with patient and his family. Recommended exercise, low salt diet and to cut down on alcohol use. Instructed him to purchase home bp monitor and record home bp 2-3 times daily. He is to bring his BP log to his f/u with PCP. Patient acknowledges understanding and agrees with plan. He is cleared for discharge from medicine point of view. Requesting Provider: Dr. Meza Date Consult Requested: 08/09/17 Reason for Consult: HTN Patient History Reviewed: Yes Admission H&P Reviewed: Yes
[2017-08-09 13:02] VITALS: BP 179/84
== END 2017-08-09 12:30 | disposition home or self-care (01) ==
LOC: MW.ED 17:38 → UNDOADMIN 19:54 → MW.MS 19:54 → MERGE 20:20 → MW.MS 20:20 → MW.SDS 20:20
PROVIDERS: ATTEND Orthopaedic Surgery
DX: S42.341A Displaced spiral fracture of shaft of humerus, right arm, initial encounter for closed fracture (principal); S43.004A Unspecified dislocation of right shoulder joint, initial encounter; I10 Essential (primary) hypertension; W19.XXXA Unspecified fall, initial encounter; Z98.49 Cataract extraction status, unspecified eye; Z98.890 Other specified postprocedural states
CPT/HCPCS: 24505; 36415; 73030; 73060; 80048; 85025; 85610; 93005; 99285; A9270; J1885; J2250; J2405; J3010; J7040; 01620; 99283; J2704

== ENCOUNTER 2017-08-21 10:58 | Day surgery (SDC) | payer OTHER ==
[~2017-08-21 10:58] MED LIST: Acetaminophen/HYDROcodone 325-10 MG Tab PO PRN
[2017-08-21] MEDS: Lactated Ringers 1,000 ML IV SCH ×2 (11:24→18:35)
--- NOTE | 2017-08-21 11:58 | PCM.PREANE ---
Preanesthetic Assessment - Anesthesia/Transfusion/Family Hx Anesthesia History: Prior Anesthesia Without Reaction Family History of Anesthesia Reaction: No Transfusion History: No Prior Transfusion(s) - Review of Systems General: No Symptoms Pulmonary: No Symptoms Cardiovascular: No Symptoms Gastrointestinal: No Symptoms Neurological: No Symptoms Other: Reports: None - Physical Assessment NPO Status Date: 08/20/17 O2 Sat by Pulse Oximetry: 99 Respiratory Rate: 16 Vital Signs: Last Vital Signs Temp 36.7 C 08/21/17 11:25 Pulse 79 08/21/17 11:25 Resp 16 08/21/17 11:25 BP 149/77 H 08/21/17 11:25 Pulse Ox 99 08/21/17 11:25 Height: 1.8 m Weight: 119.748 kg ASA Class: 2 Mental Status: Alert & Oriented x3 Airway Class: Mallampati = 2 Dentition: Reports: Missing Tooth/Teeth Lungs: Clear to Auscultation, Normal Respiratory Effort Cardiovascular: Regular Rate, Regular Rhythm - Allergies Allergies/Adverse Reactions: Allergies Allergy/AdvReac Type Severity Reaction Status Date / Time No Known Allergies Allergy Verified 08/08/17 18:14 - Blood Blood Available: No - Anesthesia Plan Pre-Op Medication Ordered: None - Acknowledgements Anesthesia Type Planned: General Anesthesia Pt an Appropriate Candidate for the Planned Anesthesia: Yes Alternatives and Risks of Anesthesia Discussed w Pt/Guardian: Yes Pt/Guardian Understands and Agrees with Anesthesia Plan: Yes PreAnesthesia Questionnaire - Past Health History Medical/Surgical History: Denies Medical/Surgical History HEENT History: Reports: Macular Degeneration, Other (See Below) Other HEENT History: starting of macular degeneration, wears readers, partial front tooth Cardiovascular History: Reports: Hypertension Gastrointestinal History: Reports: GERD, Other (See Below) Other Gastrointestinal History: hx of geena rectal abscess Musculoskeletal History: Reports: Fracture Other Musculoskeletal History: presently has fx rt humerus, dislocated shoulder on 08/08/17 Endocrine/Metabolic History: Reports: Obesity/BMI 30+ - Past Surgical History Head Surgeries/Procedures: Reports: None HEENT Surgical History: Reports: Cataract Surgery GI Surgical History: - SUBSTANCE USE Smoking Status *Q: Never Smoker Second Hand Smoke Exposure: No Days Per Week of Alcohol Use: 5 Number of Drinks Per Day: 6 Total Drinks Per Week: 30 Recreational Drug Use History: No - HOME MEDS Home Medications: Home Meds Lisinopril 20 mg PO DAILY #30 tablet 08/09/17 [Rx] Acetaminophen/HYDROcodone [[place] 325-10 MG] 1 - 2 tab PO Q4H PRN 08/16/17 [ History] Areds 1 tab PO DAILY 08/16/17 [History] Aspirin [[place] Aspirin] 81 mg PO DAILY 08/16/17 [History] Multivitamin [Multivitamins] 1 tab PO DAILY 08/16/17 [History] Omeprazole Magnesium [Prilosec Otc] 20 mg PO DAILY 08/16/17 [History] amLODIPine [Norvasc] 5 mg PO DAILY 08/16/17 [History] - CURRENT (IN HOUSE) MEDS Current Meds: Current Medications Hydrocodone Bitart/Acetaminophen ([place] 325-10 Mg) 1 - 2 tab PO Q4H PRN PRN Reason: Pain Cefazolin Sodium/Dextrose 2 gm (/ Premix) 50 mls @ 100 mls/hr IV ONCALL [facility] Lactated Ringer's (Ringers, Lactated) 1,000 mls @ 100 mls/hr IV ASDIRECTED [facility] Last Admin: 08/21/17 11:24 Dose: 100 mls/hr
[2017-08-21] MEDS ORDERED: Lidocaine 2% 5 ML SDV ONE ×3 (12:45→13:30)
[2017-08-21] MEDS ORDERED: Midazolam 1 MG/ML 2 ML SDV ONE (12:45)
[2017-08-21] MEDS ORDERED: Propofol 200 MG/20 ML SDV ONE ×4 (12:45→16:34)
[2017-08-21] MEDS ORDERED: fentaNYL 100 MCG/2 ML SDV ONE ×2 (12:45→16:15)
--- NOTE | 2017-08-21 13:36 | PCM.OPNOTE ---
- General Post-Op/Procedure Note Date of Surgery/Procedure: 08/21/17 Operative Procedure(s): R humeral IM rodding Post-Op Diagnosis: R humerus fracture Anesthesia Technique: General ET Tube Primary Surgeon: Ameena Meza Reforestation Worker: Rosie Johnson Reforestation Worker: Leopoldo Alcantara in mLs: 100 Condition: Good Free Text/Narrative:: #[id number]
[2017-08-21] MEDS ORDERED: HYDROmorphone 2 MG/ML Syringe ONE (14:29)
[2017-08-21] MEDS ORDERED: fentaNYL 100 MCG/2 ML SDV IVPUSH PRN (15:14)
[2017-08-21] MEDS ORDERED: HYDROmorphone 2 MG/ML Syringe IVPUSH ONE (15:14)
[2017-08-21] MEDS ORDERED: Aluminum Hydroxide/Magnesium Hydroxide/Simethicone Susp 30 ML Cup PO PRN (17:01)
[2017-08-21] MEDS ORDERED: Morphine 4 MG/ML Syringe IVPUSH PRN (17:01)
[2017-08-21] MEDS ORDERED: Bisacodyl 10 MG Supp RECTAL PRN (17:01)
[2017-08-21] MEDS ORDERED: Ondansetron 4 MG/2 ML SDV IV PRN (17:01)
[2017-08-21] MEDS ORDERED: diphenhydrAMINE 25 MG Cap PO PRN (17:01)
[2017-08-21] MEDS ORDERED: oxyCODONE 5 MG Tab PO PRN (17:01)
[2017-08-21] MEDS ORDERED: Ondansetron 4 MG/2 ML SDV ONE (17:08)
[2017-08-21] MEDS ORDERED: Acetaminophen 500 MG Tab PO SCH (17:15)
--- NOTE | 2017-08-21 17:38 | PCM.POSTAN ---
POST ANESTHESIA ASSESSMENT - MENTAL STATUS Mental Status: Alert, Oriented - VITAL SIGNS Pulse Rate: 100 SaO2: 92 (roomk air) Resp Rate: 11 Blood Pressure: 143/65 - RESPIRATORY Respiratory Status: Respiratory Rate WNL, Airway Patent, O2 Saturation Stable - CARDIOVASCULAR CV Status: Pulse Rate WNL, Blood Pressure Stable - GASTROINTESTINAL GI Status: No Symptoms - PAIN Pain Score: 0 - POST OP HYDRATION Hydration Status: Adequate & Stable - OBSERVATIONS Free Text/Narrative:: Awakens easily to verbal Denies pain Vitals in stable limits Satisfactory post anesthesia condition
[2017-08-21] MEDS: Ketorolac 30 MG/ML SDV IVPUSH SCH ×2 (18:30→22:23)
[2017-08-21] MEDS: Docusate Sodium 100 MG Cap PO SCH (21:25)
[2017-08-21] MEDS: ceFAZolin 2 GM in Premix Bag 1 BAG IV SCH ×3 (21:26→21:34)
[2017-08-21] MEDS: Lisinopril 10 MG Tab PO SCH (22:22)
[2017-08-22] MEDS: Lactated Ringers 1,000 ML IV SCH (04:34)
[2017-08-22] MEDS: Ketorolac 30 MG/ML SDV IVPUSH SCH (04:36)
[2017-08-22] MEDS: ceFAZolin 2 GM in Premix Bag 1 BAG IV SCH (06:03)
--- NOTE | 2017-08-22 08:37 | PCM.SURGPN ---
- General Info Date of Service: 08/22/17 POD#: 1 Functional Status: Reports: Pain Controlled, Tolerating Diet, Urinating Pain Score: 2 - Review of Systems General: Reports: No Symptoms HEENT: Reports: No Symptoms Pulmonary: Reports: No Symptoms (denies shortness of breath) Cardiovascular: Reports: No Symptoms (denies chest pain) Gastrointestinal: Reports: No Symptoms (Tolerating diet without nausea or vomiting) Genitourinary: Reports: No Symptoms (Voiding on own) Musculoskeletal: Reports: Other (Pain to right arm and shoulder well controlled) Neurological: Reports: No Symptoms - Patient Data Vitals - Most Recent: Last Vital Signs Temp 36.9 C 08/22/17 07:55 Pulse 90 08/22/17 07:55 Resp 18 08/22/17 07:55 BP 162/69 H 08/22/17 07:55 Pulse Ox 90 L 08/22/17 07:55 Weight - Most Recent: 119.748 kg I&O - Last 24 Hours: Intake & Output 08/21/17 08/22/17 08/22/17 22:59 06:59 14:59 Intake Total 1550 2902 Output Total 1150 Balance 1550 1752 Lab Results Last 24 Hrs: Laboratory Results - last 24 hr 08/22/17 Range/Units 07:25 Hgb 11.1 L (13.0-17.0) g/dL Hct 34.1 L (38.0-50.0) % Med Orders - Current: Current Medications Hydrocodone Bitart/Acetaminophen ([place] 325-10 Mg) 1 - 2 tab PO Q4H PRN PRN Reason: Pain Al Hydroxide/Mg Hydroxide (Mag-Al Plus) 30 ml PO Q4H PRN PRN Reason: indigestion Amlodipine Besylate (Norvasc) 5 mg PO DAILY [facility] Bisacodyl (Dulcolax) 10 mg RECTAL DAILY PRN PRN Reason: Constipation Celecoxib (Celebrex) 200 mg PO DAILY [facility] Diphenhydramine HCl (Benadryl) 25 - 50 mg PO Q6H PRN PRN Reason: Itching Docusate Sodium (Colace) 100 mg PO BID [facility] Last Admin: 08/21/17 21:25 Dose: 100 mg Fentanyl (Sublimaze) 50 mcg IVPUSH Q5M PRN PRN Reason: Pain (severe 7-10) Stop: 08/22/17 15:14 Cefazolin Sodium/Dextrose 2 gm (/ Premix) 50 mls @ 100 mls/hr IV ONCALL [facility] Ketorolac Tromethamine (Toradol) 30 mg IVPUSH Q6H [facility] Stop: 08/22/17 09:00 Last Admin: 08/22/17 04:36 Dose: 30 mg Lisinopril (Prinivil) 20 mg PO DAILY [facility] Last Admin: 08/21/17 22:22 Dose: 20 mg Morphine Sulfate (Morphine) 1 - 3 mg IVPUSH Q3H PRN PRN Reason: Pain Ondansetron HCl (Zofran) 4 mg IV Q6HR PRN PRN Reason: NAUSEA/VOMITING Oxycodone HCl (Oxycodone) 5 - 10 mg PO Q4H PRN PRN Reason: Pain Last Admin: 08/21/17 18:28 Dose: 10 mg Discontinued Medications Acetaminophen (Tylenol Extra Strength) 1,000 mg PO Q6H [facility] Fentanyl (Sublimaze) Confirm Administered Dose 400 mcg .ROUTE .STK-MED ONE Stop: 08/21/17 12:46 Fentanyl (Sublimaze) Confirm Administered Dose 100 mcg .ROUTE .STK-MED ONE Stop: 08/21/17 16:16 Hydromorphone HCl (Dilaudid) Confirm Administered Dose 2 mg .ROUTE .STK-MED ONE Stop: 08/21/17 14:30 Hydromorphone HCl (Dilaudid) 0 mg IVPUSH ONETIME ONE Stop: 08/21/17 15:15 Last Admin: 08/21/17 18:14 Dose: Not Given Lactated Ringer's (Ringers, Lactated) 1,000 mls @ 100 mls/hr IV ASDIRECTED [facility] Last Admin: 08/22/17 04:34 Dose: 100 mls/hr Cefazolin Sodium/Dextrose 2 gm (/ Premix) 50 mls @ 100 mls/hr IV Q8HR [facility] Stop: 08/22/17 06:29 Last Infusion: 08/22/17 06:35 Dose: Infused Lidocaine (Xylocaine-Mpf 2%) Confirm Administered Dose 10 ml .ROUTE .STK-MED ONE Stop: 08/21/17 12:46 Lidocaine (Xylocaine-Mpf 2%) Confirm Administered Dose 5 ml .ROUTE .STK-MED ONE Stop: 08/21/17 13:31 Lidocaine (Xylocaine-Mpf 2%) Confirm Administered Dose 5 ml .ROUTE .STK-MED ONE Stop: 08/21/17 13:31 Midazolam HCl (Versed 1 Mg/Ml) Confirm Administered Dose 2 mg .ROUTE .STK-MED ONE Stop: 08/21/17 12:46 Ondansetron HCl (Zofran) Confirm Administered Dose 4 mg .ROUTE .STK-MED ONE Stop: 08/21/17 17:09 Last Admin: 08/21/17 18:14 Dose: Not Given Propofol (Diprivan 20 Ml) Confirm Administered Dose 400 mg .ROUTE .STK-MED ONE Stop: 08/21/17 12:46 Propofol (Diprivan 20 Ml) Confirm Administered Dose 200 mg .ROUTE .STK-MED ONE Stop: 08/21/17 14:38 Propofol (Diprivan 20 Ml) Confirm Administered Dose 200 mg .ROUTE .STK-MED ONE Stop: 08/21/17 15:39 Propofol (Diprivan 20 Ml) Confirm Administered Dose 200 mg .ROUTE .STK-MED ONE Stop: 08/21/17 16:35 - Exam Wound/Incisions: Dressing Dry and Intact General: Alert, Oriented, Cooperative, No Acute Distress Extremities: Other (Edema to right hand, sensation and ROM of wrist and phalanges intact, pulses palpable, dressings C/D/I) - Problem List Review Problem List Initiated/Reviewed/Updated: Yes - My Orders Last 24 Hours: Active Orders 24 hr Category Date Time Status Patient Status [ADT] Routine ADT 08/21/17 13:34 Active Activity as Tolerated [RC] .Routine Care 08/21/17 17:00 Active Neurovascular Check [RC] Q2HR Care 08/21/17 17:00 Active Notify Provider Vital Signs [RC] ASDIRECTED Care 08/21/17 17:00 Active Overnight Pulse Oximetry [RC] Click to Edit Care 08/21/17 17:31 Active Oxygen Therapy [RC] ASDIRECTED Care 08/21/17 17:31 Active RT Incentive Spirometry [RC] ASDIRECTED Care 08/21/17 17:00 Active Vital Signs [RC] Q4H Care 08/21/17 17:00 Active PT Evaluation and Treatment [CONS] Routine Cons 08/21/17 17:00 Active Fluoro>1Hr [CR] Routine Exams 08/21/17 14:12 Taken Humerus Rt [CR] Routine Exams 08/21/17 17:06 Taken Shoulder Comp Rt [CR] Routine Exams 08/21/17 17:07 Taken HEMOGLOBIN/HEMATOCRIT,HH [HEME] DAILY Lab 08/23/17 07:00 Ordered HEMOGLOBIN/HEMATOCRIT,HH [HEME] DAILY Lab 08/24/17 07:00 Ordered Acetaminophen/HYDROcodone [[place] 325-10 MG] Med 08/21/17 08:00 Active 1 - 2 tab PO Q4H PRN Alum Hydrox/Mag Hydrox/Simeth [Mag-Al Plus] Med 08/21/17 17:01 Active 30 ml PO Q4H PRN Bisacodyl [Dulcolax] Med 08/21/17 17:01 Active 10 mg RECTAL DAILY PRN Celecoxib [CeleBREX] Med 08/22/17 09:00 Active 200 mg PO DAILY Docusate Sodium [Colace] Med 08/21/17 21:00 Active 100 mg PO BID Ketorolac [Toradol] Med 08/21/17 17:15 Active 30 mg IVPUSH Q6H Lisinopril [Prinivil] Med 08/21/17 22:15 Active 20 mg PO DAILY [facility] Med 08/21/17 17:01 Active 1 - 3 mg IVPUSH Q3H PRN Ondansetron [Zofran] Med 08/21/17 17:01 Active 4 mg IV Q6HR PRN amLODIPine [Norvasc] Med 08/22/17 09:00 Active 5 mg PO DAILY diphenhydrAMINE [Benadryl] Med 08/21/17 17:01 Active 25 - 50 mg PO Q6H PRN fentaNYL [Sublimaze] Med 08/21/17 15:14 Active 50 mcg IVPUSH Q5M PRN oxyCODONE Med 08/21/17 17:01 Active 5 - 10 mg PO Q4H PRN Ice Therapy [OM.PC] Routine Oth 08/21/17 17:00 Ordered Medication Orders Hydrocodone Bitart/Acetaminophen ([place] 325-10 Mg) 1 - 2 tab PO Q4H PRN PRN Reason: Pain Al Hydroxide/Mg Hydroxide (Mag-Al Plus) 30 ml PO Q4H PRN PRN Reason: indigestion Amlodipine Besylate (Norvasc) 5 mg PO DAILY [facility] Bisacodyl (Dulcolax) 10 mg RECTAL DAILY PRN PRN Reason: Constipation Celecoxib (Celebrex) 200 mg PO DAILY [facility] Diphenhydramine HCl (Benadryl) 25 - 50 mg PO Q6H PRN PRN Reason: Itching Docusate Sodium (Colace) 100 mg PO BID [facility] Last Admin: 08/21/17 21:25 Dose: 100 mg Fentanyl (Sublimaze) 50 mcg IVPUSH Q5M PRN PRN Reason: Pain (severe 7-10) Stop: 08/22/17 15:14 Cefazolin Sodium/Dextrose 2 gm (/ Premix) 50 mls @ 100 mls/hr IV ONCALL [facility] Ketorolac Tromethamine (Toradol) 30 mg IVPUSH Q6H [facility] Stop: 08/22/17 09:00 Last Admin: 08/22/17 04:36 Dose: 30 mg Admin: 08/21/17 22:23 Dose: 30 mg Admin: 08/21/17 18:30 Dose: 30 mg Lisinopril (Prinivil) 20 mg PO DAILY [facility] Last Admin: 08/21/17 22:22 Dose: 20 mg Morphine Sulfate (Morphine) 1 - 3 mg IVPUSH Q3H PRN PRN Reason: Pain Ondansetron HCl (Zofran) 4 mg IV Q6HR PRN PRN Reason: NAUSEA/VOMITING Oxycodone HCl (Oxycodone) 5 - 10 mg PO Q4H PRN PRN Reason: Pain Last Admin: 08/21/17 18:28 Dose: 10 mg - Assessment Assessment (Free Text/Narrative):: Mr. Brennan is POD 1 internal fixation of right humeral spiral fracture with IM Nail. Overnight suffered from hypertension which improved with after home regimen and calcium blockade was initiated. This morning, pain is well controlled, sensation and pulses intact, ROM to wrist and fingers intact, pain to right shoulder controlled, voiding and tolerating a diet. - Plan Plan (Free Text/Narrative):: Discontinue IV fluids Transition to oral pain regimen, discussed with patient and spouse If pain remains controlled, possible discharge home later today.
[2017-08-22] MEDS: Docusate Sodium 100 MG Cap PO SCH (08:38)
[2017-08-22] MEDS: Lisinopril 10 MG Tab PO SCH (08:41)
[2017-08-22 08:42] VITALS: BP 134/61
[2017-08-22] MEDS ORDERED: amLODIPine 5 MG Tab PO SCH (09:00)
[2017-08-22] MEDS ORDERED: Celecoxib 100 MG Cap PO SCH (09:00)
--- NOTE | 2017-08-22 10:12 | CR ---
EXAM DATE: 08/21/17 PATIENT'S AGE: 62 Patient: CHALINO REID Facility: [place], [place] Site . Site : 1955 Study: XRay Shoulder [id number]/9/2017 11:15:25 PM Ordering Physician: Derrick Lindquist Final Report: INDICATION: Postop TECHNIQUE: Three views right shoulder, 10:45 p.m. COMPARISON: 08/15/2017 FINDINGS: Bones: Intra-medullary maria elena with 2 proximal locking screws transfixing a displaced fracture of the proximal humeral shaft. Joint spaces: Unremarkable. Soft tissues: Unremarkable. IMPRESSION: Intra-medullary maria elena with 2 proximal locking screws transfixing a displaced fracture of the proximal humeral shaft. Dictated by Nikita Infante MD @ 08/21/2017 11:23:48 PM Dictated by: Nikita Infante MD @ 08/21/2017 23:23:53 (Electronic Signature) Report Signed by Proxy. SHIREEN
--- NOTE | 2017-08-22 10:13 | CR ---
EXAM DATE: 08/21/17 PATIENT'S AGE: 62 Patient: CHALINO REID Facility: [place], [place] Site . Site : 1955 Study: XRay Extremity humerus [id number]/9/2017 11:16:10 PM Ordering Physician: Derrick Lindquist Final Report: INDICATION: post op TECHNIQUE: Two views of the right humerus. COMPARISON: August 15, 2017. FINDINGS/ IMPRESSION : Interval ORIF of an acute stable mid humeral shaft fracture. Dictated by Raciel Lopez MD @ 08/21/2017 11:34:30 PM Dictated by: Raciel Lopez MD @ 08/21/2017 23:34:48 (Electronic Signature) Report Signed by Proxy. [facility]
--- NOTE | 2017-08-22 11:37 | OR ---
SURGEON: Ameena Meza MD DATE OF PROCEDURE: 08/21/2017 PREOPERATIVE DIAGNOSIS: Right proximal humerus shaft fracture. POSTOPERATIVE DIAGNOSIS: Right proximal humerus shaft fracture. PROCEDURES PERFORMED: Closed reduction of right humerus with insertion of intramedullary nail. ASSISTANTS: Rosie Johnson PA-C and Leopoldo Alcantara, PGY-2. ANESTHESIA: General. ESTIMATED BLOOD LOSS: 100 mL. TOURNIQUET TIME: Zero minutes. COMPLICATIONS: None. DEEP VENOUS THROMBOSIS PROPHYLAXIS: PAS boot to bilateral lower extremities. IMPLANTS USED: Allen T2 humeral nail, size 8 mm x 260 mm with 5.0-mm interlocking screws x4. BRIEF HISTORY: Сергей is a 62-year-old male, who sustained a fall, resulting in a right proximal humeral shaft fracture, along with a right shoulder dislocation. He underwent closed reduction one week prior. He was unable to tolerate a humeral fracture brace. Due to the position of the fracture, I did recommend surgical intervention. The risks and goals of procedure were discussed with the patient and were documented preoperatively. He agreed to proceed. DESCRIPTION OF PROCEDURE: The patient was properly identified and brought to the operating room. He was transferred from the OR cart, and placed on the operating table in a supine position. General anesthesia was administered. After adequate anesthesia was obtained, the right upper extremity was prepped in standard fashion using ChloraPrep solution. It was then sterilely draped. A time-out was performed to ensure correct site and procedure. Preoperative antibiotics were given. The surgical site had been marked preoperatively. An incision was made over the anterolateral aspect of the shoulder. The subcutaneous tissues were dissected down. The rotator cuff was then identified. The biceps groove was palpated anteriorly. An incision was made through the supraspinatus tendon. A guidewire was then placed. The position of the starting point was checked in both AP and lateral planes. It was felt that it was acceptable. The guide pin was then advanced into the proximal humerus. It was then over-drilled with an entry reamer. A tissue protector was used to protect the surrounding tissues. A guide maria elena was then placed into the proximal fragment. Using C-arm imaging, closed reduction of the fracture was performed, and the guide maria elena was passed into the distal fragment. The guide maria elena was passed to the olecranon fossa. Its position was checked in both the AP and lateral planes and felt to be appropriate. The length was then measured. It did measure 270 mm; however, I felt that there was a possibility that the 270 mm may be too long, and I did switch to a 260 mm nail. The guide maria elena was then kept in place as the humerus was sequentially reamed. I felt that an 8 mm maria elena would be appropriate, and he was reamed to 9.5 mm. The humeral nail was then placed without difficulty. The guide maria elena was removed. Two 5.0 mm interlocking screws were then placed with just slight extension of the previous incision. Both screws were within the proximal fragment. The fracture was quite oblique in nature. I did my best to align rotation. There was no shortening of the fracture noted, however. I elected to proceed with two [id number] distal interlocking screws. An incision was made over the lateral aspect of the upper arm distally. The subcutaneous tissues were dissected down. Care was taken to carefully dissect for any evidence of radial nerve. This was not encountered. I was able to get completely through the bone with minimal soft tissue dissection. Perfect circles were then obtained with the C-arm imaging. These were quite difficult to obtain due to the triangular shape of the distal humerus at this location. Once the drill bit was passed for the proximal interlocking screw, this was kept in place, as an additional drill bit was used to find the distal hole. The interlocking screw holes were then measured, and 5.0 mm screws were placed. Care was taken to always use a tissue guide for both the drilling and screwing to not inadvertently wrap up any surrounding soft tissue. At the completion, final C-arm images showed acceptable reduction of the fracture. There was some lack of bony apposition along the proximal portion on the AP view. However, overall alignment was acceptable. WOUND CLOSURE: The wounds were then copiously irrigated with saline solution. A #2 FiberWire was used to reapproximate the supraspinatus tendon over the entry point. The subcutaneous tissues were closed with 2-0 Vicryl, and the skin was closed with delbert. Aquacel dressings were then placed over the wounds. He was placed into a sling. POSTOPERATIVE CONDITION: He was awakened from his anesthetic, and transferred back to the operating room cart. He was brought to recovery room in stable condition. COUNT RESULTS: All needle and sponge counts were correct. KEENROX / MODL /[id number]
--- NOTE | 2017-08-22 13:53 | CR ---
EXAMINATION: Right humerus HISTORY: Fracture COMPARISON: 08/15/2017 TECHNIQUE: 9 Fluoroscopic images provided FINDINGS/IMPRESSION: Operative control films demonstrate an intramedullary maria elena traversing an oblique mid right humerus fracture.
== END 2017-08-22 10:24 | disposition home or self-care (01) ==
LOC: MW.SDS 10:58 → MW.MS 12:48 → MW.SDS 08-22 10:24
PROVIDERS: ATTEND Orthopaedic Surgery
DX: S42.301A Unspecified fracture of shaft of humerus, right arm, initial encounter for closed fracture (principal); Z79.82 Long term (current) use of aspirin; Z79.899 Other long term (current) drug therapy; X58.XXXA Exposure to other specified factors, initial encounter
CPT/HCPCS: 24516; 36415; 73030; 73060; 76001; 85014; 85018; A9270; J0690; J1170; J1885; J2250; J3010; J7120; 01730; C1713; C1776; J2704

== ENCOUNTER 2019-11-24 21:58 | Emergency (ER) | payer OTHER ==
[2019-11-24] MEDS ORDERED: Sodium Chloride 0.9% 1,000 ML IV ONE (22:23)
[2019-11-24 23:04] LABS: BLOOD UREA NITROGEN,BUN 9 mg/dL (7.0-18.0); CHLORIDE,CL 95 mmol/L (98-107); GLUCOSE RANDOM 96 mg/dL (74-106); POTASSIUM,K 3.9 mmol/L (3.5-5.1); SODIUM,NA 132 mmol/L (136-148)
--- NOTE | 2019-11-24 23:15 | CR ---
INDICATION: syncope TECHNIQUE: Chest radiograph 1 view COMPARISON: None FINDINGS: Moderate degradation of image quality noted due to body habitus. Mediastinum: The mediastinum is normal in appearance. The heart silhouette is normal in size and morphology. Lung: Both lungs are unremarkable in appearance. No sign of pleural effusion seen. No pneumothorax is identified. Bone and Soft tissue: Unremarkable for age. IMPRESSION: 1. No acute cardiopulmonary disease is seen. Dictated by: Mike De Paz MD @ 11/24/2019 23:12:59 (Electronically Signed)
--- NOTE | 2019-11-24 23:17 | CT ---
INDICATION: Head injury from fall, syncope TECHNIQUE: CT Head without i.v. contrast. COMPARISON: None FINDINGS: CSF space: The ventricles are normal for age. Brain: No evidence of mass, acute infarction or hemorrhage is seen. No mass-effect or midline shift is seen. Moderate patchy regions of low attenuation are present in the periventricular white matter, likely due to chronic microvascular ischemic changes. Calvarium: There is opacification of the right maxillary sinus with sinus wall thickening, consistent with chronic sinusitis. Opacification the hypoplastic right sphenoid sinus is noted. The mastoid air cells are clear. The patient is status post bilateral cataract removal. The calvarium is unremarkable in appearance with no fractures identified. IMPRESSION: 1. No evidence of acute infarction, intracranial hemorrhage, or mass-effect seen. Dictated by Mike De Paz MD @ 11/24/2019 11:15:33 PM Please note that all CT scans at this facility use dose modulation, iterative reconstruction, and/or weight-based dosing when appropriate to reduce radiation dose to as low as reasonably achievable. Dictated by: Mike De Paz MD @ 11/24/2019 23:15:39 (Electronically Signed)
--- NOTE | 2019-11-25 00:17 | EDM.PDOC ---
ED HPI GENERAL MEDICAL PROBLEM - General Chief Complaint: General Stated Complaint: PASSED OUT Time Seen by Provider: 11/24/19 22:23 Source of Information: Reports: Patient History Limitations: Reports: No Limitations - History of Present Illness INITIAL COMMENTS - FREE TEXT/NARRATIVE: Apparently drank 3 glasses of wine and some whiskey then he passed out had a near syncopal episode Onset: Today Duration: Minutes: Location: Reports: Chest Severity: Mild Improves with: Reports: None Worsens with: Reports: None Associated Symptoms: Reports: No Other Symptoms, Confusion - Related Data Allergies Allergy/AdvReac Type Severity Reaction Status Date / Time No Known Allergies Allergy Verified 08/08/17 18:14 Home Meds: Home Meds Aspirin [[place] Aspirin EC] 81 mg PO DAILY 08/16/17 [History] Multivitamin [Multivitamins] 1 tab PO DAILY 08/16/17 [History] Losartan/Hydrochlorothiazide [Losartan-HCTZ 50-12.5 MG] 1 tab PO BID 11/24/19 [ History] Metoprolol Tartrate 50 mg PO BID 11/24/19 [History] Omeprazole 10 mg PO DAILY 11/24/19 [History] Past Medical History - Past Health History Medical/Surgical History: Denies Medical/Surgical History HEENT History: Reports: Macular Degeneration, Other (See Below) Other HEENT History: starting of macular degeneration, wears readers, partial front tooth Cardiovascular History: Reports: Hypertension Gastrointestinal History: Reports: GERD, Other (See Below) Other Gastrointestinal History: hx of geena rectal abscess Musculoskeletal History: Reports: Fracture Other Musculoskeletal History: presently has fx rt humerus, dislocated shoulder on 08/08/17 Endocrine/Metabolic History: Reports: Obesity/BMI 30+ - Infectious Disease History Infectious Disease History: Reports: Chicken Pox - Past Surgical History Head Surgeries/Procedures: Reports: None HEENT Surgical History: Reports: Cataract Surgery Social & Family History - Family History Family Medical History: Noncontributory - Tobacco Use Smoking Status *Q: Never Smoker - Caffeine Use Caffeine Use: Reports: None - Alcohol Use Days Per Week of Alcohol Use: 7 Number of Drinks Per Day: 10 Total Drinks Per Week: 70 - Recreational Drug Use Recreational Drug Use: No ED ROS GENERAL - Review of Systems Review Of Systems: Comprehensive ROS is negative, except as noted in HPI. Constitutional: Reports: No Symptoms HEENT: Reports: No Symptoms Respiratory: Reports: No Symptoms Cardiovascular: Reports: No Symptoms Endocrine: Reports: No Symptoms GI/Abdominal: Reports: No Symptoms : Reports: No Symptoms Musculoskeletal: Reports: No Symptoms Skin: Reports: No Symptoms Neurological: Reports: No Symptoms Psychiatric: Reports: No Symptoms Hematologic/Lymphatic: Reports: No Symptoms Immunologic: Reports: No Symptoms ED EXAM, GENERAL - Physical Exam Exam: See Below Exam Limited By: No Limitations General Appearance: Alert, WD/WN, No Apparent Distress Ears: Normal External Exam, Normal Canal, Hearing Grossly Normal, Normal TMs Nose: Normal Inspection, Normal Mucosa, No Blood Throat/Mouth: Normal Inspection, Normal Lips, Normal Teeth Head: Atraumatic, Normocephalic Respiratory/Chest: No Respiratory Distress, Lungs Clear, Normal Breath Sounds Cardiovascular: Normal Peripheral Pulses, Regular Rate, Rhythm, No JVD, No Murmur GI/Abdominal: Normal Bowel Sounds, Soft (Male) Exam: Deferred Rectal (Males) Exam: Deferred Back Exam: Normal Inspection, Full Range of Motion Extremities: Normal Inspection, Normal Range of Motion, No Pedal Edema, Normal Capillary Refill Neurological: Alert, Oriented, CN II-XII Intact Psychiatric: Normal Affect, Normal Mood Skin Exam: Warm, Dry, Intact, Normal Color Lymphatic: No Adenopathy Course - Vital Signs Last Recorded V/S: Last Vital Signs Temp 97.8 F 11/24/19 22:08 Pulse 73 11/24/19 22:42 Resp 18 11/24/19 22:42 BP 130/57 L 11/24/19 22:42 Pulse Ox 97 11/24/19 22:42 - Orders/Labs/Meds Orders: Active Orders 24 hr Category Date Time Status EKG 12 Lead [EKG Documentation Completion] [RC] STAT Care 11/24/19 22:21 Active Labs: Laboratory Tests 11/24/19 11/24/19 Range/Units 21:30 21:30 WBC 4.69 (4.0-11.0) K/uL RBC 3.99 L (4.50-5.90) M/uL Hgb 12.1 L (13.0-17.0) g/dL Hct 35.4 L (38.0-50.0) % MCV 88.7 (80.0-98.0) fL MCH 30.3 (27.0-32.0) pg MCHC 34.2 (31.0-37.0) g/dL RDW Std Deviation 44.8 (28.0-62.0) fl RDW Coeff of Toni 14 (11.0-15.0) % Plt Count 162 (150-400) K/uL MPV 8.90 (7.40-12.00) fL Neut % (Auto) 49.9 (48.0-80.0) % Lymph % (Auto) 29.9 (16.0-40.0) % Cannon % (Auto) 16.4 H (0.0-15.0) % Eos % (Auto) 3.2 (0.0-7.0) % Baso % (Auto) 0.6 (0.0-1.5) % Neut # (Auto) 2.3 (1.4-5.7) K/uL Lymph # (Auto) 1.4 (0.6-2.4) K/uL Cannon # (Auto) 0.8 (0.0-0.8) K/uL Eos # (Auto) 0.2 (0.0-0.7) K/uL Baso # (Auto) 0.0 (0.0-0.1) K/uL Nucleated RBC % 0.0 /100WBC Nucleated RBCs # 0 K/uL Sodium 132 L (136-148) mmol/L Potassium 3.9 (3.5-5.1) mmol/L Chloride 95 L (98-107) mmol/L Carbon Dioxide 28.0 (21.0-32.0) mmol/L BUN 9 (7.0-18.0) mg/dL Creatinine 1.0 (0.8-1.3) mg/dL Est Cr Clr Drug Dosing 76.59 mL/min Estimated GFR (MDRD) > 60.0 ml/min Glucose 96 (74-106) mg/dL Calcium 8.3 L (8.5-10.1) mg/dL Total Bilirubin 0.3 (0.2-1.0) mg/dL AST 28 (15-37) IU/L ALT 31 (14-63) IU/L Alkaline Phosphatase 59 (46-116) U/L Total Protein 6.7 (6.4-8.2) g/dL Albumin 3.2 L (3.4-5.0) g/dL Globulin 3.5 (2.6-4.0) g/dL Albumin/Globulin Ratio 0.9 (0.9-1.6) Ethyl Alcohol 212 mg/dL Meds: Medications Discontinued Medications Generic Name Dose Route Start Last Admin Trade Name Freq PRN Reason Stop Dose Admin Sodium Chloride 1,000 mls @ 1,000 mls/hr 11/24/19 22:23 11/24/19 22:37 Normal Saline IV 11/24/19 23:22 1,000 mls/hr .Bolus ONE Administration Departure - Departure Time of Disposition: 00:16 Disposition: Home, Self-Care 01 Condition: Good Clinical Impression: Acute alcohol intoxication - Discharge Information Referrals: Ramirez Donato MD [Primary Care Provider] - Sepsis Event Note - Evaluation Sepsis Screening Result: No Definite Risk - Focused Exam Vital Signs: Vital Signs Temp Pulse Resp BP Pulse Ox 11/24/19 22:42 73 18 130/57 L 97 11/24/19 22:08 97.8 F 74 18 136/74 96 Date Exam was Performed: 11/25/19 Time Exam was Performed: 00:13 - My Orders Last 24 Hours: My Active Orders 11/24/19 22:21 EKG 12 Lead [EKG Documentation Completion] [RC] STAT - Assessment/Plan Last 24 Hours: My Active Orders 11/24/19 22:21 EKG 12 Lead [EKG Documentation Completion] [RC] STAT
[2019-11-25 00:20] VITALS: BP 156/95; PULSE 76
== END 2019-11-25 00:20 | disposition home or self-care (01) ==
LOC: MW.ED 21:58
DX: F10.129 Alcohol abuse with intoxication, unspecified (principal); Y90.7 Blood alcohol level of 200-239 mg/100 ml; I10 Essential (primary) hypertension; K21.9 Gastro-esophageal reflux disease without esophagitis; E66.9 Obesity, unspecified; Z68.39 Body mass index [BMI] 39.0-39.9, adult; Z79.899 Other long term (current) drug therapy; Z79.82 Long term (current) use of aspirin
CPT/HCPCS: 36415; 70450; 71045; 80053; 80320; 85025; 93005; 96360; 96361; 99284; J7030; G0480

== ENCOUNTER 2021-08-19 09:53 | Day surgery (SDC) | payer OTHER ==
[~2021-08-19 09:53] MED LIST changes: -Acetaminophen/HYDROcodone 325-10 MG Tab PO PRN; +Lactated Ringers 1,000 ML IV SCH; +Sodium Chloride 0.9% 10 ML SDV IV PRN; +Sodium Chloride 0.9% 10 ML Syringe FLUSH PRN; +Sodium Chloride 0.9% 2.5 ML Syringe FLUSH PRN
--- NOTE | 2021-08-19 11:11 | PCM.PREANE ---
Preanesthetic Assessment - Procedure Proposed Procedure: EGD, Colonoscopy - Anesthesia/Transfusion/Family Hx Anesthesia History: Prior Anesthesia Without Reaction Family History of Anesthesia Reaction: No Transfusion History: No Prior Transfusion(s) - Review of Systems General: No Symptoms Pulmonary: No Symptoms Cardiovascular: No Symptoms (HTN) Gastrointestinal: No Symptoms (GERD well controlled) Neurological: No Symptoms Other: Reports: None (ETOH abuse) - Physical Assessment NPO Status Date: 08/17/21 NPO Status Time: 19:00 (Solids, > 3 hr liq) Vital Signs: Last Vital Signs Temp 97.5 F 08/19/21 10:13 Pulse 59 L 08/19/21 10:13 Resp 16 08/19/21 10:13 BP 195/94 H 08/19/21 10:13 Pulse Ox 99 08/19/21 10:13 Height: 5 ft 10 in Weight: 122.47 kg ASA Class: 2 Mental Status: Alert & Oriented x3 Airway Class: Mallampati = 3 Dentition: Reports: Partial (upper) Thyro-Mental Finger Breadths: 3 Mouth Opening Finger Breadths: 3 ROM/Head Extension: Full Lungs: Clear to Auscultation, Normal Respiratory Effort Cardiovascular: Regular Rate, Regular Rhythm - Allergies Allergies/Adverse Reactions: Allergies Allergy/AdvReac Type Severity Reaction Status Date / Time No Known Allergies Allergy Verified 08/13/21 09:40 - Acknowledgements Anesthesia Type Planned: General Anesthesia Pt an Appropriate Candidate for the Planned Anesthesia: Yes Alternatives and Risks of Anesthesia Discussed w Pt/Guardian: Yes Pt/Guardian Understands and Agrees with Anesthesia Plan: Yes PreAnesthesia Questionnaire - Past Health History Medical/Surgical History: Denies Medical/Surgical History HEENT History: Reports: Macular Degeneration, Other (See Below) Other HEENT History: starting of macular degeneration, wears readers, Cardiovascular History: Reports: Hypertension Respiratory History: Reports: None Gastrointestinal History: Reports: GERD, Other (See Below) Other Gastrointestinal History: hx of geena rectal abscess Genitourinary History: Reports: None Musculoskeletal History: Reports: Fracture, Gout Other Musculoskeletal History: fx rt humerus, dislocated shoulder on 08/08/17 Neurological History: Reports: None Psychiatric History: Reports: None Endocrine/Metabolic History: Reports: Obesity/BMI 30+, Osteopenia Hematologic History: Reports: None Immunologic History: Reports: None Oncologic (Cancer) History: Reports: None Dermatologic History: Reports: None - Infectious Disease History Infectious Disease History: Reports: Chicken Pox - Past Surgical History Head Surgeries/Procedures: Reports: None HEENT Surgical History: Reports: Cataract Surgery Cardiovascular Surgical History: Reports: None Respiratory Surgical History: Reports: None GI Surgical History: Reports: Other (See Below) Other GI Surgeries/Procedures: I&D of geena rectal abscess Male Surgical History: Reports: None Endocrine Surgical History: Reports: None Neurological Surgical History: Reports: None Musculoskeletal Surgical History: Reports: ORIF Other Musculoskeletal Surgeries/Procedures:: surgery for dislocated right shoulder and ORIF right humerous Oncologic Surgical History: Reports: None Dermatological Surgical History: Reports: None - SUBSTANCE USE Tobacco Use Status *Q: Never Tobacco User Days Per Week of Alcohol Use: 7 Number of Drinks Per Day: 6 Total Drinks Per Week: 42 Recreational Drug Use History: No - HOME MEDS Home Medications: Home Meds Aspirin [[employer] Aspirin EC] 81 mg PO DAILY 08/16/17 [History] Multivitamin [Multivitamins] 1 tab PO DAILY 08/16/17 [History] Metoprolol Tartrate 50 mg PO BID 11/24/19 [History] Omeprazole 10 mg PO DAILY 11/24/19 [History] Alendronate Sodium [Fosamax] 70 mg PO WEEKLY 08/13/21 [History] Calcium Carbonate/Vitamin D3 [Calcium 500-Vit D3 200 Tablet] 1 tab PO DAILY 08/13/21 [History] Losartan/Hydrochlorothiazide [Losartan-HCTZ 100-25 MG] 1 tab PO DAILY 08/13/21 [History] Vit A/Vit C/Vit E/Zinc/Copper [Preservision] 1 tab PO DAILY 08/13/21 [History] - CURRENT (IN HOUSE) MEDS Current Meds: Current Medications Lactated Ringer's (Ringers, Lactated) 1,000 mls @ 125 mls/hr IV ASDIRECTED [place] Last Admin: 08/19/21 10:17 Dose: 125 mls/hr Documented by: Sodium Chloride (Sodium Chloride 0.9% 10 Ml Syringe) 10 ml FLUSH ASDIRECTED PRN PRN Reason: Keep Vein Open Sodium Chloride (Sodium Chloride 0.9% 2.5 Ml Syringe) 2.5 ml FLUSH ASDIRECTED PRN PRN Reason: Keep Vein Open Sodium Chloride (Sodium Chloride 0.9% 10 Ml Syringe) 10 ml FLUSH ASDIRECTED PRN PRN Reason: Keep Vein Open Sodium Chloride (Sodium Chloride 0.9% 2.5 Ml Syringe) 2.5 ml FLUSH ASDIRECTED PRN PRN Reason: Keep Vein Open Sodium Chloride (Sodium Chloride 0.9% 10 Ml Sdv) 10 ml IV ASDIRECTED PRN PRN Reason: IV Use
[2021-08-19] MEDS ORDERED: Midazolam 1 MG/ML 2 ML SDV ONE (11:30)
[2021-08-19] MEDS ORDERED: Propofol 200 MG/20 ML SDV ONE ×3 (11:30→12:19)
--- NOTE | 2021-08-19 12:36 | PCM.POSTAN ---
POST ANESTHESIA ASSESSMENT - MENTAL STATUS Mental Status: Alert, Oriented - VITAL SIGNS Vital Signs: Last Vital Signs Temp 97.5 F 08/19/21 10:13 Pulse 59 L 08/19/21 10:13 Resp 16 08/19/21 10:13 BP 195/94 H 08/19/21 10:13 Pulse Ox 99 08/19/21 10:13 - RESPIRATORY Respiratory Status: Respiratory Rate WNL, Airway Patent, O2 Saturation Stable - CARDIOVASCULAR CV Status: Pulse Rate WNL, Blood Pressure Stable - GASTROINTESTINAL GI Status: No Symptoms - PAIN Pain Score: 0 - POST OP HYDRATION Hydration Status: Adequate & Stable
--- NOTE | 2021-08-19 12:42 | PCM48HPAN ---
Post Anesthesia Note - EVALUATION WITHIN 48HRS OF ANESTHETIC Vital Signs in Normal Range: Yes Patient Participated in Evaluation: Yes Respiratory Function Stable: Yes Airway Patent: Yes Cardiovascular Function Stable: Yes Hydration Status Stable: Yes Pain Control Satisfactory: Yes Nausea and Vomiting Control Satisfactory: Yes Mental Status Recovered: Yes Vital Signs: Last Vital Signs Temp 97.7 F 08/19/21 12:31 Pulse 53 L 08/19/21 12:37 Resp 14 08/19/21 12:37 BP 161/78 H 08/19/21 12:37 Pulse Ox 10 L 08/19/21 12:37 - COMMENTS/OBSERVATIONS Free Text/Narrative:: Pt doing well post-op. VSS. No apparent anesthetic complications. Dr. Constantin Rodríguez
[2021-08-19 13:23] VITALS: BP 188/97; PULSE 64
--- NOTE | 2021-08-19 14:03 | PCM.OPNOTE ---
- General Post-Op/Procedure Note Date of Surgery/Procedure: 08/19/21 Operative Procedure(s): Diagnostic EGD and screening colonoscopy Findings: ascending colon polyp x 2, transverse colon x 3, descending colon x 1, rectal polyp x 1. Hyperplastic polyp of stomach. hiatal hernia Pre Op Diagnosis: Chronic gerd, screening colonoscopy Post-Op Diagnosis: Hiatal hernia, hyperplastic gastric polyp, ascending colon polyp x 2, transverse colon polyp x 3, descending colon polyp x 1, rectal polyp x 1 Anesthesia Technique: MAC Primary Surgeon: Erica Lion Condition: Good Free Text/Narrative:: Intake & Output 08/18/21 08/19/21 08/19/21 22:59 06:59 14:59 Intake Total 600 Balance 600
--- NOTE | 2021-08-20 15:59 | OR ---
SURGEON: ERICA LION MD DATE OF PROCEDURE: 08/19/2021 PREOPERATIVE DIAGNOSES: 1. Chronic reflux. 2. Screening colonoscopy. POSTOPERATIVE DIAGNOSES: 1. Chronic reflux. 2. Hiatal hernia. 3. Hyperplastic polyp of stomach. 4. Ascending colon polyp x2. 5. Transverse colon polyp x3. 6. Descending colon polyp x1. 7. Rectal polyp x1. PROCEDURES PERFORMED: Diagnostic esophagogastroduodenoscopy and screening colonoscopy with polypectomy. PRIMARY SURGEON: Erica Lion MD ANESTHESIA: MAC. INSTRUMENT USED: Olympus endoscope and colonoscope. EXTENT OF THE EXAM: To the second portion of the duodenum, to the cecum. PREPARATION: Good. LIMITATIONS: None. INDICATIONS FOR EXAMINATION: Patient is a 66-year-old male who presented to clinic for screening colonoscopy. On further exam, the patient was noted to have chronic reflux and has been on a PPI for many years. The decision was made to proceed with diagnostic EGD as well as to perform a screening colonoscopy. I explained the procedures, expected perioperative course, and the risks. He verbalized understanding and wishes to proceed. PROCEDURE IN DETAIL: Patient was brought in to the endoscopy suite and placed in the left lateral decubitus position. A time-out was completed verifying the patient's name, age, date of , allergies, and procedure to be performed. Monitored anesthesia care was induced. A bite block was placed in the patient's mouth and continuous oxygen was provided via face mask throughout the procedure. After adequate sedation was achieved, a well-lubricated endoscope was placed in the patient's mouth and advanced under direct visualization to the second portion of duodenum. This appeared normal and a photograph was taken. The scope was then fully withdrawn while examining the color, texture, anatomy, and integrity mucosa of the upper GI tract. The duodenum appeared normal. The scope was brought into the stomach and a photograph was taken of the pylorus and GE junction with the scope retroflexed. In the pre-pyloric area, the patient had a large pedunculated cluster of hyperplastic-appearing polyps. Multiple photographs of this were taken. Biopsies were taken of the polypoid lesions and sent to Pathology labeled as antral polyp biopsies. Upon retroflexion, the patient was noted to have a small hiatal hernia as well as a couple of very small hyperplastic polyps near the GE junction. Biopsies were taken of the gastric antrum, body, and fundus and sent for histologic review and H pylori testing. The scope was then brought into the distal esophagus. A photograph was taken of the Z-line. This appeared grossly normal. A biopsy was taken 1 cm above the Z- line. The distal esophageal mucosa was visualized with narrow band imaging and appeared normal. The remainder of the esophagus was free of pathology. The scope was removed and this portion of the procedure terminated. A digital rectal exam was performed. This exam was within normal limits. A well- lubricated colonoscope was inserted into the rectum and advanced under direct visualization to the level of the cecum. The cecum was identified by both visual and anatomic landmarks. A photograph was taken of the cecal cap, however, I was unable to retroflex the scope within the cecum due to looping of the scope more proximally. The scope was then fully withdrawn while examining the color, texture, anatomy, and integrity of the mucosa from the cecum to the anal canal. The patient had multiple small polyps throughout the colon. There were two sessile polyps in the ascending colon, three in the transverse colon, one in the descending colon, and one in the rectum. These were all removed in piecemeal fashion using a cold biopsy forceps. The scope was retroflexed within the rectum to allow visualization of the anal canal opening. This appeared normal and a photograph was taken. The scope was then straightened out and fully withdrawn. The cecum to anus time was 12 minutes. The patient tolerated the procedure well and was transferred to the PACU in stable condition. ENDOSCOPIC DIAGNOSES: 1. Chronic reflux. 2. Hiatal hernia. 3. Hyperplastic polyp of stomach. 4. Ascending colon polyp x2. 5. Transverse colon polyp x3. 6. Descending colon polyp x1. 7. Rectal polyp x1. RECOMMENDATION: Follow up in clinic in two weeks. BARBARA SANCHEZ /[id number]
== END 2021-08-19 13:19 | disposition home or self-care (01) ==
LOC: MW.SDS 09:53
PROVIDERS: ATTEND Surgery
DX: Z12.11 Encounter for screening for malignant neoplasm of colon (principal); D12.4 Benign neoplasm of descending colon; D12.8 Benign neoplasm of rectum; D12.2 Benign neoplasm of ascending colon; D12.3 Benign neoplasm of transverse colon; K44.9 Diaphragmatic hernia without obstruction or gangrene; K31.7 Polyp of stomach and duodenum; K21.00 Gastro-esophageal reflux disease with esophagitis, without bleeding; M85.80 Other specified disorders of bone density and structure, unspecified site; E66.01 Morbid (severe) obesity due to excess calories; I10 Essential (primary) hypertension; Z79.899 Other long term (current) drug therapy; Z79.82 Long term (current) use of aspirin; Z98.890 Other specified postprocedural states; Z68.38 Body mass index [BMI] 38.0-38.9, adult
CPT/HCPCS: 43239; 45380; 88305; 88342; J2250; J2704; J7120; 00813

== ENCOUNTER 2021-09-30 08:23 | Day surgery (SDC) | payer OTHER ==
[~2021-09-30 08:23] MED LIST changes: -Sodium Chloride 0.9% 10 ML SDV IV PRN; +Sodium Chloride 0.9% 20 ML SDV IV PRN
--- NOTE | 2021-09-30 08:40 | PCM.PREANE ---
Preanesthetic Assessment - Anesthesia/Transfusion/Family Hx Anesthesia History: Prior Anesthesia Without Reaction Transfusion History: No Prior Transfusion(s) - Review of Systems General: No Symptoms Pulmonary: No Symptoms Cardiovascular: No Symptoms Gastrointestinal: No Symptoms Neurological: No Symptoms Other: Reports: None - Physical Assessment NPO Status Date: 09/29/21 NPO Status Time: 21:00 Height: 5 ft 10 in Weight: 122.016 kg ASA Class: 3 Mental Status: Alert & Oriented x3 Airway Class: Mallampati = 2 Dentition: Reports: Normal Dentition, Partial ROM/Head Extension: Full Lungs: Clear to Auscultation, Normal Respiratory Effort Cardiovascular: Regular Rate, Regular Rhythm - Allergies Allergies/Adverse Reactions: Allergies Allergy/AdvReac Type Severity Reaction Status Date / Time No Known Allergies Allergy Verified 09/24/21 07:07 - Anesthesia Plan Beta Cj: Metoprolol Med Last Dose Date: 09/30/21 Med Last Dose Time: 07:00 - Acknowledgements Anesthesia Type Planned: General Anesthesia Pt an Appropriate Candidate for the Planned Anesthesia: Yes Alternatives and Risks of Anesthesia Discussed w Pt/Guardian: Yes Pt/Guardian Understands and Agrees with Anesthesia Plan: Yes PreAnesthesia Questionnaire - Past Health History Medical/Surgical History: Denies Medical/Surgical History HEENT History: Reports: Macular Degeneration, Other (See Below) Other HEENT History: starting of macular degeneration, wears readers, Cardiovascular History: Reports: Hypertension Respiratory History: Reports: None Gastrointestinal History: Reports: Colon Polyp, GERD, Other (See Below) Other Gastrointestinal History: hx of geena rectal abscess Genitourinary History: Reports: None Musculoskeletal History: Reports: Fracture, Gout Other Musculoskeletal History: fx rt humerus, dislocated shoulder on 08/08/17 Neurological History: Reports: None Psychiatric History: Reports: None Endocrine/Metabolic History: Reports: Obesity/BMI 30+, Osteopenia Hematologic History: Reports: None Immunologic History: Reports: None Oncologic (Cancer) History: Reports: None Dermatologic History: Reports: None - Infectious Disease History Infectious Disease History: Reports: Chicken Pox - Past Surgical History Head Surgeries/Procedures: Reports: None HEENT Surgical History: Reports: Cataract Surgery Cardiovascular Surgical History: Reports: None Respiratory Surgical History: Reports: None GI Surgical History: Reports: Colonoscopy, EGD, Other (See Below) Other GI Surgeries/Procedures: I&D of geena rectal abscess Male Surgical History: Reports: None Endocrine Surgical History: Reports: None Neurological Surgical History: Reports: None Musculoskeletal Surgical History: Reports: ORIF Other Musculoskeletal Surgeries/Procedures:: surgery for dislocated right shoulder and ORIF right humerous Oncologic Surgical History: Reports: None Dermatological Surgical History: Reports: None - SUBSTANCE USE Tobacco Use Status *Q: Never Tobacco User Days Per Week of Alcohol Use: 6 - HOME MEDS Home Medications: Home Meds Aspirin [[place] Aspirin EC] 81 mg PO DAILY 08/16/17 [History] Multivitamin [Multivitamins] 1 tab PO DAILY 08/16/17 [History] Metoprolol Tartrate 50 mg PO BID 11/24/19 [History] Alendronate Sodium [Fosamax] 70 mg PO WEEKLY 08/13/21 [History] Calcium Carbonate/Vitamin D3 [Calcium 500-Vit D3 200 Tablet] 1 tab PO DAILY 08/13/21 [History] Losartan/Hydrochlorothiazide [Losartan-HCTZ 100-25 MG] 1 tab PO DAILY 08/13/21 [History] Vit A/Vit C/Vit E/Zinc/Copper [Preservision] 1 tab PO DAILY 08/13/21 [History] Famotidine 40 mg PO DAILY 09/27/21 [History] - CURRENT (IN HOUSE) MEDS Current Meds: Current Medications Lactated Ringer's (Ringers, Lactated) 1,000 mls @ 125 mls/hr IV ASDIRECTED [place] Sodium Chloride (Sodium Chloride 0.9% 10 Ml Syringe) 10 ml FLUSH ASDIRECTED PRN PRN Reason: Keep Vein Open Sodium Chloride (Sodium Chloride 0.9% 2.5 Ml Syringe) 2.5 ml FLUSH ASDIRECTED PRN PRN Reason: Keep Vein Open Sodium Chloride (Sodium Chloride 0.9% 10 Ml Syringe) 10 ml FLUSH ASDIRECTED PRN PRN Reason: Keep Vein Open Sodium Chloride (Sodium Chloride 0.9% 2.5 Ml Syringe) 2.5 ml FLUSH ASDIRECTED PRN PRN Reason: Keep Vein Open Sodium Chloride (Sodium Chloride 0.9% 20 Ml Sdv) 10 ml IV ASDIRECTED PRN PRN Reason: IV Use
[2021-09-30] MEDS ORDERED: Propofol 200 MG/20 ML SDV ONE ×5 (08:55→10:20)
[2021-09-30] MEDS ORDERED: Lidocaine 2% 5 ML SDV ONE ×2 (08:55→09:49)
[2021-09-30] MEDS ORDERED: fentaNYL 100 MCG/2 ML SDV ONE ×2 (08:55→09:48)
[2021-09-30] MEDS ORDERED: Ketamine 500 mg/10 ML MDV ONE (10:00)
--- NOTE | 2021-09-30 10:43 | PCM.POSTAN ---
POST ANESTHESIA ASSESSMENT - MENTAL STATUS Mental Status: Alert, Oriented - VITAL SIGNS Vital Signs: Last Vital Signs Temp 97.7 F 09/30/21 10:37 Pulse 56 L 09/30/21 10:37 Resp 13 09/30/21 10:37 BP 127/85 09/30/21 10:37 Pulse Ox 100 09/30/21 10:37 - RESPIRATORY Respiratory Status: Respiratory Rate WNL, Airway Patent, O2 Saturation Stable - CARDIOVASCULAR CV Status: Pulse Rate WNL, Blood Pressure Stable - GASTROINTESTINAL GI Status: No Symptoms - POST OP HYDRATION Hydration Status: Adequate & Stable
--- NOTE | 2021-09-30 10:43 | PCM48HPAN ---
Post Anesthesia Note - EVALUATION WITHIN 48HRS OF ANESTHETIC Vital Signs in Normal Range: Yes Patient Participated in Evaluation: Yes Respiratory Function Stable: Yes Airway Patent: Yes Cardiovascular Function Stable: Yes Hydration Status Stable: Yes Pain Control Satisfactory: Yes Nausea and Vomiting Control Satisfactory: Yes Mental Status Recovered: Yes Vital Signs: Last Vital Signs Temp 97.7 F 09/30/21 10:37 Pulse 56 L 09/30/21 10:37 Resp 13 09/30/21 10:37 BP 127/85 09/30/21 10:37 Pulse Ox 100 09/30/21 10:37
[2021-09-30 11:04] VITALS: BP 181/85; PULSE 57
--- NOTE | 2021-09-30 11:32 | PCM.OPNOTE ---
- General Post-Op/Procedure Note Date of Surgery/Procedure: 09/30/21 Operative Procedure(s): Diagnostic EGD with polyp resection Findings: Antral hyperplastic gastric polyp resected with loop cautery Pre Op Diagnosis: Hyperplastic gastric polyp Post-Op Diagnosis: Hyperplastic gastric polyp Anesthesia Technique: [facility] [place] Primary Surgeon: Erica iLon Condition: Stable Free Text/Narrative:: Intake & Output 09/29/21 09/30/21 09/30/21 22:59 06:59 14:59 Intake Total 950 Balance 950
--- NOTE | 2021-10-01 17:48 | OR ---
SURGEON: ERICA LION MD DATE OF PROCEDURE: 09/30/2021 PREOPERATIVE DIAGNOSIS: Hyperplastic gastric polyp of the antrum. POSTOPERATIVE DIAGNOSIS: Hyperplastic gastric polyp of the antrum. PROCEDURE PERFORMED: Esophagogastroduodenoscopy with polypectomy. PRIMARY SURGEON: Erica Lion MD SECONDARY SURGEON: Trenton Toribio MD ANESTHESIA: MAC. INSTRUMENT USED: Olympus endoscope. EXTENT OF EXAM: To the second portion of duodenum. PREPARATION: Good. LIMITATIONS: None. INDICATIONS FOR EXAMINATION: Patient is a 66-year-old male who had recently undergone a diagnostic EGD. During that case, he was found to have a large pedunculated polyp within the antrum. Biopsies of this were taken. It was found to be a hyperplastic polyp. The patient was taken off PPI therapy and the decision was made to resect these polyps, given their size. I explained the procedure to the patient, the expected perioperative course, and the risks of bleeding, infection, or perforation. He verbalized understanding and wishes to proceed. PROCEDURE IN DETAIL: The patient was brought in to the endoscopy suite and placed in a beach chair position. A time-out was completed verifying the patient's name, age, date of , allergies, and procedure to be performed. Monitored anesthesia care was induced and a bite block was placed in the patient's mouth. Continuous oxygen was provided via face mask throughout the procedure. After adequate sedation was achieved, a well-lubricated endoscope was placed in the patient's mouth and advanced under direct visualization to the second portion of duodenum. This appeared normal and a photograph was taken. The scope was then fully withdrawn while examining the color, texture, anatomy, and integrity of the mucosa of the upper GI tract. The duodenum was normal. The scope was brought into the antrum and I immediately identified the pedunculated polyp that I had identified before. A photograph was taken of this as well as with the scope retroflexed. The polyp was quite large, so it was removed in piecemeal fashion using cautery with a wire loop. The pieces were then all sent to Pathology labeled as hyperplastic polyp of the antrum. A photograph was taken of the resected area when we were completed. The scope was then brought into the distal esophagus which appeared normal, and then removed. The patient tolerated the procedure well and was transferred to the PACU in stable condition. ENDOSCOPIC DIAGNOSIS: Hyperplastic gastric polyp of the antrum. RECOMMENDATION: Follow up in clinic in two weeks. BARBARA / LAURA /[id number]
== END 2021-09-30 11:30 | disposition home or self-care (01) ==
LOC: MW.SDS 08:23
PROVIDERS: ATTEND Surgery
DX: K31.7 Polyp of stomach and duodenum (principal); K25.9 Gastric ulcer, unspecified as acute or chronic, without hemorrhage or perforation; K29.50 Unspecified chronic gastritis without bleeding; K21.9 Gastro-esophageal reflux disease without esophagitis; I10 Essential (primary) hypertension; M10.9 Gout, unspecified; E66.9 Obesity, unspecified; Z98.890 Other specified postprocedural states; Z79.899 Other long term (current) drug therapy; Z79.82 Long term (current) use of aspirin; Z68.38 Body mass index [BMI] 38.0-38.9, adult
CPT/HCPCS: 43251; J2704; J3010; J7120; 00731

== ENCOUNTER 2023-09-09 08:10 | Inpatient (IN) | payer OTHER, MEDICARE ==
[2023-09-09] MEDS ORDERED: Sodium Chloride 0.9% 2.5 ML Syringe FLUSH PRN ×2 (08:27→13:57)
[2023-09-09] MEDS ORDERED: Sodium Chloride 0.9% 10 ML Syringe FLUSH PRN ×2 (08:27→13:57)
[2023-09-09 08:48] LABS: BASE EXCESS VENOUS 5.2 (-2.0-3.0); PH,VENOUS 7.45 (7.31-7.41)
[2023-09-09 08:55] LABS: BASOPHILS ABSOLUTE AUTO 0.08 K/uL (0.00-0.20); BASOPHILS PERCENT AUTO 1.4 % (0.0-1.0); EOSINOPHILS ABSOLUTE AUTO 0.33 K/uL (0.00-0.45); EOSINOPHILS PERCENT AUTO 5.6 % (0.0-6.0); HEMATOCRIT 39.2 % (42.0-52.0); HEMOGLOBIN 14.5 g/dL (14.0-18.0); IMMATURE GRAN ABSOLUTE AUTO 0.06 K/uL (0.00-0.05); LYMPHOCYTES ABSOLUTE AUTO 1.19 K/uL (1.00-4.80); LYMPHOCYTES PERCENT AUTO 20.2 % (24.0-44.0); MEAN CORPUSCULAR HEMOGLOBIN 35.5 pg (28.0-32.0); MEAN CORPUSCULAR VOLUME 95.8 fL (83.0-99.0); MEAN PLATELET VOLUME 8.4 fL (9.4-12.4); MONOCYTES ABSOLUTE AUTO 1.02 K/uL (0.00-0.80); MONOCYTES PERCENT AUTO 17.3 % (0.0-8.0); NEUTROPHILS ABSOLUTE AUTO 3.22 K/uL (1.80-7.70); NEUTROPHILS PERCENT AUTO 54.5 % (41.0-71.0); PLATELET COUNT,PLT 164 K/uL (150-400); RED BLOOD CELL COUNT 4.09 M/uL (4.52-5.90)
[2023-09-09 08:59] LABS: INR 1.01 (0.86-1.11)
[2023-09-09 09:28] LABS: A/G RATIO 0.9 (0.9-1.6); ALANINE AMINOTRANSFERASE,ALT 34 IU/L (14-63); ALBUMIN 3.7 g/dL (3.4-5.0); ALKALINE PHOSPHATASE 56 U/L (46-116); ASPARTATE AMNIOTRANSFERASE,AST 41 IU/L (15-37); BILIRUBIN TOTAL 0.8 mg/dL (0.2-1.0); BLOOD UREA NITROGEN,BUN 9 mg/dL (7.0-18.0); CALCIUM 9.5 mg/dL (8.5-10.1); CARBON DIOXIDE,CO2 27.3 mmol/L (21.0-32.0); CHLORIDE,CL 93 mmol/L (98-107); EST CRCL DRUG DOSING (CG) 75.03 mL/min; GLUCOSE RANDOM 119 mg/dL (74-106); LIPASE 47 U/L (16-77); POTASSIUM,K 3.9 mmol/L (3.5-5.1); PROTEIN TOTAL,TP 7.7 g/dL (6.4-8.2); SODIUM,NA 131 mmol/L (136-148); TSH ULTRASENSITIVE 1.63 uIU/mL (0.36-3.74)
[2023-09-09 09:29] LABS: ESTIMATED GFR 83 mL/min (>60); ETHANOL BLOOD MEDICAL < 3.0 mg/dL
[2023-09-09] MEDS ORDERED: Lidocaine 4% 1 each Patch TOP STA (09:52)
[2023-09-09] MEDS ORDERED: Iopamidol 755 Mg/ML 100 ML Bottle IVPUSH ONE (10:54)
[2023-09-09] MEDS ORDERED: Ondansetron 4 MG/2 ML SDV IVPUSH ONE (11:35)
[2023-09-09] MEDS ORDERED: fentaNYL 50 MCG/ML SDV IVPUSH ONE ×2 (11:35→12:48)
[2023-09-09] MEDS ORDERED: Lidocaine 1% with EPINEPHrine 1:100,000 20 ML MDV INJECT ONE (11:35)
[2023-09-09] MEDS ORDERED: Naloxone 0.4 MG/ML SDV IVPUSH PRN (11:35)
[2023-09-09] MEDS ORDERED: ceFAZolin 2 GM in Sodium Chloride 0.9% 50 ML IV ONE (12:10)
[2023-09-09] MEDS ORDERED: fentaNYL 50 MCG/ML SDV ONE (12:28)
[2023-09-09] MEDS ORDERED: LORazepam 2 MG/ML SDV IVPUSH PRN (13:49)
[2023-09-09] MEDS ORDERED: Acetaminophen/oxyCODONE 325-5 MG Tab PO PRN (13:57)
[2023-09-09] MEDS ORDERED: diphenhydrAMINE 50 MG/ML SDV IVPUSH PRN (13:57)
[2023-09-09] MEDS ORDERED: Ondansetron 4 MG/2 ML SDV IVPUSH PRN (13:57)
[2023-09-09] MEDS ORDERED: HYDROmorphone 2 MG/ML Syringe IVPUSH PRN (13:57)
[2023-09-09] MEDS ORDERED: Sodium Chloride 0.9% 20 ML SDV IV PRN (13:57)
[2023-09-09] MEDS ORDERED: Thiamine 100 MG in Sodium Chloride 0.9% 100 ML IV SCH (14:00)
[2023-09-09] MEDS ORDERED: HYDROmorphone 1 MG/ML Syringe IVPUSH PRN (14:07)
[2023-09-09] MEDS: Metoprolol Tartrate 50 MG Tab PO SCH ×2 (15:13→20:35)
[2023-09-09] MEDS: Hydrochlorothiazide/Losartan 12.5-50 mg Tab PO SCH (15:17)
[2023-09-09] MEDS: Enoxaparin 40 MG/0.4 ML Syringe SUBCUT SCH (15:17)
[2023-09-09] MEDS: Ketorolac 30 MG/ML SDV IVPUSH SCH ×2 (15:18→20:34)
[2023-09-09] MEDS: Folic Acid 1 MG/0.2 ML UD Syringe SUBCUT SCH (15:18)
[2023-09-09] MEDS: Thiamine 200 MG/2 ML MDV IV SCH (15:19)
[2023-09-09] MEDS: Famotidine 20 MG Tab PO SCH (20:35)
[2023-09-09] MEDS: Cyclobenzaprine 10 MG Tab PO SCH (22:19)
[2023-09-10] MEDS: Ketorolac 30 MG/ML SDV IVPUSH SCH ×2 (02:48→08:51)
[2023-09-10] MEDS: Omeprazole 20 MG Cap.CR PO SCH ×2 (06:08→06:45)
[2023-09-10] MEDS: Sennosides/Docusate Sodium 50-8.6 MG Tab PO PRN ×2 (06:08→21:06)
[2023-09-10] MEDS: Cyclobenzaprine 10 MG Tab PO SCH ×3 (06:09→21:06)
[2023-09-10 06:44] LABS: HEMATOCRIT 33.3 % (42.0-52.0); HEMOGLOBIN 11.9 g/dL (14.0-18.0); MEAN CORPUSCULAR HEMOGLOBIN 35.8 pg (28.0-32.0); MEAN CORPUSCULAR HGB CONC 35.7 g/dL (32.0-36.0); MEAN CORPUSCULAR VOLUME 100.3 fL (83.0-99.0); PLATELET COUNT,PLT 128 K/uL (150-400); RED BLOOD CELL COUNT 3.32 M/uL (4.52-5.90); WHITE BLOOD CELL COUNT,WBC 5.51 K/uL (3.9-11.3)
[2023-09-10 06:59] LABS: CALCIUM 9.5 mg/dL (8.5-10.1); CARBON DIOXIDE,CO2 31.4 mmol/L (21.0-32.0); CREATININE 1.3 mg/dL (0.8-1.3); EST CRCL DRUG DOSING (CG) 57.71 mL/min; POTASSIUM,K 4.3 mmol/L (3.5-5.1)
[2023-09-10] MEDS: Hydrochlorothiazide/Losartan 12.5-50 mg Tab PO SCH (08:50)
[2023-09-10] MEDS: Metoprolol Tartrate 50 MG Tab PO SCH ×2 (08:50→21:05)
[2023-09-10] MEDS: Folic Acid 1 MG/0.2 ML UD Syringe SUBCUT SCH (08:51)
[2023-09-10] MEDS: Thiamine 200 MG/2 ML MDV IV SCH (08:51)
[2023-09-10] MEDS: Famotidine 20 MG Tab PO SCH ×2 (08:51→21:06)
[2023-09-10] MEDS: Sodium Chloride 0.9% 1,000 ML IV SCH (12:25)
[2023-09-10] MEDS: Enoxaparin 40 MG/0.4 ML Syringe SUBCUT SCH (14:03)
[2023-09-11] MEDS: Sodium Chloride 0.9% 1,000 ML IV SCH (00:29)
[2023-09-11] MEDS: Cyclobenzaprine 10 MG Tab PO SCH ×2 (06:05→13:20)
[2023-09-11] MEDS: Omeprazole 20 MG Cap.CR PO SCH ×2 (06:06→06:31)
[2023-09-11 06:18] LABS: HEMATOCRIT 32.2 % (42.0-52.0); HEMOGLOBIN 11.2 g/dL (14.0-18.0); MEAN CORPUSCULAR HEMOGLOBIN 35.4 pg (28.0-32.0); MEAN CORPUSCULAR HGB CONC 34.8 g/dL (32.0-36.0); MEAN CORPUSCULAR VOLUME 101.9 fL (83.0-99.0); MEAN PLATELET VOLUME 9.3 fL (9.4-12.4); PLATELET COUNT,PLT 129 K/uL (150-400); RED BLOOD CELL COUNT 3.16 M/uL (4.52-5.90)
[2023-09-11 06:50] LABS: A/G RATIO 0.9 (0.9-1.6); ALBUMIN 3.1 g/dL (3.4-5.0); BILIRUBIN TOTAL 1.2 mg/dL (0.2-1.0); CALCIUM 9.1 mg/dL (8.5-10.1); CARBON DIOXIDE,CO2 31.1 mmol/L (21.0-32.0); CREATININE 1.3 mg/dL (0.8-1.3); EST CRCL DRUG DOSING (CG) 57.71 mL/min; POTASSIUM,K 4.2 mmol/L (3.5-5.1); PROTEIN TOTAL,TP 6.7 g/dL (6.4-8.2)
[2023-09-11] MEDS: Famotidine 20 MG Tab PO SCH (08:42)
[2023-09-11] MEDS: Metoprolol Tartrate 50 MG Tab PO SCH (08:42)
[2023-09-11] MEDS: Hydrochlorothiazide/Losartan 12.5-50 mg Tab PO SCH (08:42)
[2023-09-11] MEDS: Sennosides/Docusate Sodium 50-8.6 MG Tab PO PRN (08:43)
[2023-09-11 08:48] VITALS: PULSE 73
[2023-09-11] MEDS ORDERED: Folic Acid 1 MG Tab PO SCH (09:00)
[2023-09-11] MEDS ORDERED: Thiamine 100 MG Tab PO SCH (09:00)
[2023-09-11 12:27] VITALS: BP 151/81
[2023-09-11] MEDS: Enoxaparin 40 MG/0.4 ML Syringe SUBCUT SCH (13:22)
== END 2023-09-11 14:00 | disposition home health service (06) | DRG 200 ==
LOC: MW.ED 08:10 → MW.MS 13:03 → OBSVTOIN 09-10 19:33
PROVIDERS: ADMIT Surgery; ATTEND Surgery
DX: S27.0XXA Traumatic pneumothorax, initial encounter (principal); E87.1 Hypo-osmolality and hyponatremia; S22.31XA Fracture of one rib, right side, initial encounter for closed fracture; S42.021A Displaced fracture of shaft of right clavicle, initial encounter for closed fracture; I10 Essential (primary) hypertension; K21.9 Gastro-esophageal reflux disease without esophagitis; M10.9 Gout, unspecified; E66.9 Obesity, unspecified; M81.0 Age-related osteoporosis without current pathological fracture; G31.9 Degenerative disease of nervous system, unspecified; E78.5 Hyperlipidemia, unspecified; H35.30 Unspecified macular degeneration; W00.0XXA Fall on same level due to ice and snow, initial encounter; F10.10 Alcohol abuse, uncomplicated; Z79.82 Long term (current) use of aspirin; Z79.899 Other long term (current) drug therapy; Y92.414 Local residential or business street as the place of occurrence of the external cause; Z86.010 Personal history of colon polyps; Z98.49 Cataract extraction status, unspecified eye; Z98.890 Other specified postprocedural states; Z68.37 Body mass index [BMI] 37.0-37.9, adult
CPT/HCPCS: 32551; 36415; 70450; 70450-26; 71045; 71045-26; 71101-26-RT; 71101-RT; 71260; 71260-26; 72125; 72125-26; 73030-26-RT; 73030-RT; 74177; 74177-26; 80048; 80053; 80307; 82803; 83690; 84443; 84484; 85025; 85027; 85610; 93005; 96361; 96365; 96372; 96375; 96376; 97163-GP; 99284; 99285-25; A9270-GY; C1729; G0378; J0690; J1650; J1885; J2405; J3010; J3411; J3490; J7030; Q9967

== ENCOUNTER 2024-04-18 09:38 | Day surgery (SDC) | payer MEDICARE, OTHER ==
[2024-04-18] MEDS: Lactated Ringers 1,000 ML IV SCH (10:25)
[2024-04-18] MEDS ORDERED: propofoL 50 ML ONE (11:51)
[2024-04-18] MEDS ORDERED: dexmedeTOMIDine HCl 200 MCG/2 ML SDV ONE (12:07)
[2024-04-18 12:43] VITALS: PULSE 59
[2024-04-18 13:59] VITALS: BP 199/89
== END 2024-04-18 13:15 | disposition home or self-care (01) ==
LOC: MW.SDS 09:38
PROVIDERS: ATTEND Surgery
DX: Z12.11 Encounter for screening for malignant neoplasm of colon (principal); D12.2 Benign neoplasm of ascending colon; D12.3 Benign neoplasm of transverse colon; K22.10 Ulcer of esophagus without bleeding; K44.9 Diaphragmatic hernia without obstruction or gangrene; K31.7 Polyp of stomach and duodenum; K21.00 Gastro-esophageal reflux disease with esophagitis, without bleeding; I10 Essential (primary) hypertension; E66.01 Morbid (severe) obesity due to excess calories; Z68.39 Body mass index [BMI] 39.0-39.9, adult; Z79.82 Long term (current) use of aspirin; Z79.899 Other long term (current) drug therapy; Z86.010 Personal history of colon polyps
CPT/HCPCS: 43239; 45380; 88305; J2704; J7120; 00813; J3490

== ENCOUNTER 2024-08-26 10:00 | Emergency (ER) | payer MEDICARE, OTHER ==
[2024-08-26] MEDS: Acetaminophen 500 MG Tab PO ONE (10:48)
[2024-08-26] MEDS ORDERED: Ondansetron 4 MG Tab.DIS PO PRN (10:49)
[2024-08-26] MEDS ORDERED: oxyCODONE 5 MG Tab PO PRN (10:49)
[2024-08-26 12:22] VITALS: BP 168/89; PULSE 72
== END 2024-08-26 12:23 | disposition home or self-care (01) ==
LOC: MW.ED 10:00
DX: S52.614A Nondisplaced fracture of right ulna styloid process, initial encounter for closed fracture (principal); S52.571A Other intraarticular fracture of lower end of right radius, initial encounter for closed fracture; S05.11XA Contusion of eyeball and orbital tissues, right eye, initial encounter; S09.90XA Unspecified injury of head, initial encounter; S09.93XA Unspecified injury of face, initial encounter; W18.30XA Fall on same level, unspecified, initial encounter; Z75.8 Other problems related to medical facilities and other health care; K21.9 Gastro-esophageal reflux disease without esophagitis; E66.9 Obesity, unspecified; Z68.32 Body mass index [BMI] 32.0-32.9, adult; Z79.82 Long term (current) use of aspirin; Z79.899 Other long term (current) drug therapy
CPT/HCPCS: 29125; 70450; 70486; 73110; 99284; A9270

== ENCOUNTER 2025-02-10 08:58 | Inpatient (IN) | payer MEDICARE, OTHER ==
[2025-02-10 12:29] LABS: BASOPHILS ABSOLUTE AUTO 0.04 K/uL (0.00-0.20); BASOPHILS PERCENT AUTO 0.7 % (0.0-1.0); EOSINOPHILS PERCENT AUTO 1.8 % (0.0-6.0); HEMATOCRIT 31.2 % (42.0-52.0); HEMOGLOBIN 11.4 g/dL (14.0-18.0); IMMATURE GRAN ABSOLUTE AUTO 0.02 K/uL (0.00-0.05); IMMATURE GRAN PERCENT AUTO 0.4 % (0.0-0.4); LYMPHOCYTES ABSOLUTE AUTO 0.63 K/uL (1.00-4.80); LYMPHOCYTES PERCENT AUTO 11.3 % (24.0-44.0); MEAN CORPUSCULAR HEMOGLOBIN 35.6 pg (28.0-32.0); MEAN CORPUSCULAR HGB CONC 36.5 g/dL (32.0-36.0); MEAN CORPUSCULAR VOLUME 97.5 fL (83.0-99.0); MEAN PLATELET VOLUME 8.7 fL (9.4-12.4); MONOCYTES ABSOLUTE AUTO 0.85 K/uL (0.00-0.80); MONOCYTES PERCENT AUTO 15.2 % (0.0-8.0); NEUTROPHILS ABSOLUTE AUTO 3.95 K/uL (1.80-7.70); NEUTROPHILS PERCENT AUTO 70.6 % (41.0-71.0); PLATELET COUNT,PLT 127 K/uL (150-400); WHITE BLOOD CELL COUNT,WBC 5.59 K/uL (3.9-11.3)
[2025-02-10 13:09] LABS: CALCIUM 8.7 mg/dL (8.5-10.1); CARBON DIOXIDE,CO2 31.1 mmol/L (21.0-32.0); CREATININE 0.7 mg/dL (0.8-1.3); EST CRCL DRUG DOSING (CG) 97.71 mL/min; POTASSIUM,K 3.2 mmol/L (3.5-5.1)
[2025-02-10] MEDS ORDERED: Thiamine 200 MG in Sodium Chloride 0.9% 100 ML IV SCH (15:15)
[2025-02-10] MEDS ORDERED: Morphine 2 MG/ML SYRINGE IVPUSH PRN (15:16)
[2025-02-10] MEDS ORDERED: Acetaminophen 325 MG Tab PO PRN (15:16)
[2025-02-10] MEDS ORDERED: Naloxone 0.4 MG/ML SDV IVPUSH PRN (15:18)
[2025-02-10] MEDS: Folic Acid 1 MG/0.2 ML UD Syringe IV SCH (15:54)
[2025-02-10] MEDS: Thiamine 200 MG/2 ML MDV IV SCH (15:54)
[2025-02-10] MEDS: Ibuprofen 400 MG Tab PO PRN (15:54)
[2025-02-10] MEDS: NS with KCl 40mEq 1,000 ML IV SCH (15:55)
[2025-02-10] MEDS: Enoxaparin 40 MG/0.4 ML Syringe SUBCUT SCH (17:42)
[2025-02-10] MEDS: Metoprolol Tartrate 50 MG Tab PO SCH (20:25)
[2025-02-10 22:28] LABS: CALCIUM 8.5 mg/dL (8.5-10.1); CREATININE 0.8 mg/dL (0.8-1.3); EST CRCL DRUG DOSING (CG) 85.5 mL/min; POTASSIUM,K 3.9 mmol/L (3.5-5.1)
[2025-02-10 22:55] LABS: CARBON DIOXIDE,CO2 29.7 mmol/L (21.0-32.0)
[2025-02-11] MEDS: LORazepam 2 MG/ML SDV IVPUSH PRN (00:53)
[2025-02-11 02:26] LABS: PHOSPHORUS 3.7 mg/dL (2.6-4.7)
[2025-02-11 02:30] LABS: BILIRUBIN TOTAL 1.7 mg/dL (0.2-1.0); CALCIUM 9.1 mg/dL (8.5-10.1); CARBON DIOXIDE,CO2 26.1 mmol/L (21.0-32.0); CREATININE 0.7 mg/dL (0.8-1.3); EST CRCL DRUG DOSING (CG) 97.71 mL/min; POTASSIUM,K 4.3 mmol/L (3.5-5.1); PROTEIN TOTAL,TP 6.8 g/dL (6.4-8.2)
[2025-02-11 05:46] LABS: A/G RATIO 1.1 (0.9-1.6); ALBUMIN 3.5 g/dL (3.4-5.0)
[2025-02-11 06:27] LABS: HEMOGLOBIN 11.1 g/dL (14.0-18.0); MEAN CORPUSCULAR HEMOGLOBIN 35.5 pg (28.0-32.0); MEAN CORPUSCULAR HGB CONC 35.8 g/dL (32.0-36.0); PLATELET COUNT,PLT 142 K/uL (150-400); RED BLOOD CELL COUNT 3.13 M/uL (4.52-5.90); WHITE BLOOD CELL COUNT,WBC 4.86 K/uL (3.9-11.3)
[2025-02-11] MEDS: Pantoprazole 40 MG Tab.CR PO SCH (06:51)
[2025-02-11 08:18] LABS: CALCIUM 8.7 mg/dL (8.5-10.1); CREATININE 0.8 mg/dL (0.8-1.3); EST CRCL DRUG DOSING (CG) 85.5 mL/min; POTASSIUM,K 3.4 mmol/L (3.5-5.1)
[2025-02-11 08:34] LABS: CARBON DIOXIDE,CO2 28.1 mmol/L (21.0-32.0)
[2025-02-11] MEDS: oxyCODONE 5 MG Tab PO PRN (11:11)
[2025-02-11 12:40] VITALS: BP 134/82; PULSE 78
== END 2025-02-11 14:10 | disposition home or self-care (01) | DRG 536 ==
LOC: MW.ED 08:58 → MW.MS 12:01
PROVIDERS: ADMIT Internal Medicine; ATTEND Internal Medicine
DX: S32.591A Other specified fracture of right pubis, initial encounter for closed fracture (principal); E87.1 Hypo-osmolality and hyponatremia; F10.920 Alcohol use, unspecified with intoxication, uncomplicated; Z68.38 Body mass index [BMI] 38.0-38.9, adult; I10 Essential (primary) hypertension; Z75.8 Other problems related to medical facilities and other health care; K21.9 Gastro-esophageal reflux disease without esophagitis; W18.30XA Fall on same level, unspecified, initial encounter; K44.9 Diaphragmatic hernia without obstruction or gangrene; M19.90 Unspecified osteoarthritis, unspecified site; M10.9 Gout, unspecified; M81.0 Age-related osteoporosis without current pathological fracture; E66.9 Obesity, unspecified; Z98.49 Cataract extraction status, unspecified eye; Z79.82 Long term (current) use of aspirin; Z98.890 Other specified postprocedural states; Z79.899 Other long term (current) drug therapy
CPT/HCPCS: 36415; 70450; 70450-26; 72125; 72125-26; 72128; 72128-26; 72131; 72131-26; 72192; 72192-26; 73502-26-RT; 73502-RT; 80048; 80053; 83735; 84100; 85025; 85027; 97162-GP; 97530-GP; 99234; 99239; 99283; 99285; A9270-GY; J1650; J2060; J3411; J3480; J3490